=== PATIENT | male | born 1960 | race Caucasian/White ===

== ENCOUNTER → 2019-10-03 07:08 | Outpatient (CLI) | payer OTHER, SELFPAY ==
--- NOTE | 2019-10-03 08:20 | PM.TREADMILL ---
Cardiac Stress Test Report Referral & Results Date Patient Seen: 10/03/19 Time Patient Seen: 08:00 Requesting provider: Lowell Martinez Indication: Dyspnea Rest ECG: NSR Procedure Note: Today following both written and verbal informed consent, the patient was exercised according to a standard [facility] protocol. The patient exercised for a total of 10 minutes 51 seconds achieving a maximum heart rate of 155. Patient's maximum systolic blood pressure was 220. This was an estimated 12.8 METs. No signs or symptoms of angina. No unexpected dyspnea. No change in rhythm. Diffuse ST deviations in multiple leads that resolved slowly with rest. Normal hemodynamic response to exercise. ASIA-25% on active scale. Impression: Low probability for ischemia. Bearden treadmill score of 6 predicts 97% 5 year survival rate from cardiovascular causes. Please note: Actual ECG tracings can be found in the PACS system.
== END ==
PROVIDERS: PCP Internal Medicine; Visit Provider Internal Medicine
DX: R06.09 Other forms of dyspnea (principal)
CPT/HCPCS: 93016; 93017; 93018

== ENCOUNTER 2020-09-10 13:32 | Inpatient (IN) | payer OTHER, SELFPAY ==
[2020-09-10] VITALS (20 sets, daily range): BP systolic 110–161; BP diastolic 69–89; PULSE 62–87; RESP 12–24; TEMP 36.2–38.6; O2SAT 91–99; BMI 30.9
--- NOTE | 2020-09-10 | DI.RAD.S_ITS ---
PROCEDURE: XR ABDOMEN 1V INDICATIONS: BILATERAL STENT PLACEMENT TECHNIQUE: One view of the abdomen acquired. COMPARISON: [facility], CT, CT ABDOMEN PELVIS W CON, 09/10/2020, 15:18. FINDINGS: 2 intraoperative fluoroscopy images were obtained centered to kidneys, demonstrating placement of bilateral ureteral stents. IMPRESSION: Bilateral ureteral stent placement. Dictated by: David Rivera M.D. on 09/10/2020 at 19:23 Approved by: David Rivera M.D. on 09/10/2020 at 19:24
--- NOTE | 2020-09-10 14:02 | DI.RAD.S_ITS ---
PROCEDURE: XR CHEST 1V INDICATIONS: flu-like symptoms TECHNIQUE: One view of the chest was acquired. COMPARISON: None. FINDINGS: Surgical changes and devices: None. Lungs and pleura: Lungs appear clear. No pleural effusions or pneumothorax. Mediastinum: Mediastinal contours appear normal. Heart size is normal. Bones and chest wall: No suspicious bony lesions. Overlying soft tissues appear unremarkable. IMPRESSION: No definite airspace opacity identified. Dictated by: Dewayne Lopez M.D. on 09/10/2020 at 14:56 Approved by: Dewayne Lopez M.D. on 09/10/2020 at 14:59
[2020-09-10 14:16] LABS: Add Manual Diff / Slide Review NO; Basophils Absolute Auto 0 /uL (0-100); Basophils Percent Auto 0.3 % (0-2); Eosinophils Absolute Auto 0 /uL (0-450); Eosinophils Percent Auto 0.4 % (2-4); Hematocrit 45.9 % (41-53); Hemoglobin 15.9 g/dL (13.5-17.5); Lymphocytes Absolute Auto 1500 /uL (1100-4500); Lymphocytes Percent Auto 13.3 % (25-40); Mean Corpuscular HGB Conc 34.6 % (30-36); Mean Corpuscular Hemoglobin 31.7 PG (26-34); Mean Corpuscular Volume 91.7 fL (80-100); Monocytes Absolute Auto 1400 /uL (0-900); Monocytes Percent Auto 12.2 % (3-14); Neutrophils Absolute Auto 8400 /uL (1500-7000); Neutrophils Percent Auto 73.8 % (50-75); Platelet Count 154 X10^3/uL (150-400); Red Cell Distribution Width 13.1 % (11.6-14.8); White Blood Cell Count 11.4 X10^3/uL (4.5-11.0)
[2020-09-10 14:23] LABS: RBC Urine None Seen (0-5/HPF)
[2020-09-10 14:28] LABS: COVID19 -Nasal RAPID Negative (Negative)
[2020-09-10 14:29] LABS: D Dimer 814 ng/mL (<230)
[2020-09-10 14:30] LABS: Lactate (Lactic Acid) 1.6 mmol/L (0.7-2.1)
[2020-09-10 14:30] LABS: Bacteria Urine Many (>30); Culture Indicated Urine Specimen Cultured; WBC Urine 30-100/HPF (0-5/HPF)
[2020-09-10] MEDS: SODIUM CHLORIDE 0.9% 1,000 ML 125 ML IV (14:30)
[2020-09-10 14:32] LABS: Alanine Aminotransferase 62 IU/L (<50); Albumin 4.2 g/dL (3.5-5.0); Albumin Globulin Ratio 1.1 (1.0-2.8); Alkaline Phosphatase 100 U/L (38-126); Aspartate Aminotransferase 59 IU/L (17-59); Bilirubin Total 0.9 mg/dL (0.2-1.3); Blood Urea Nitrogen 28 mg/dL (9-20); Calcium 9.3 mg/dL (8.4-10.2); Carbon Dioxide 29 mmol/L (22-32); Chloride 105 mmol/L (98-107); Estimated Glomerular Filt Rate > 60.0 mL/min (>60); Globulin 3.8 g/dL (1.7-4.1); Glucose 124 mg/dL (80-110); HEMOLYSIS < 15 (0-50); Potassium 3.5 mmol/L (3.4-5.1); Sodium 140 mmol/L (137-145)
[2020-09-10 14:34] LABS: Lactate Dehydrogenase 601 U/L (313-618)
--- NOTE | 2020-09-10 14:36 | ED_ITS ---
HPI - Abdominal Pain <[facility] - Last Filed: 09/10/20 23:26> General Chief Complaint: Upper Respiratory Symptoms Stated Complaint: Sick as a dog, temp since Sun(102), chills Time Seen by Provider: 09/10/20 13:57 Source: patient and family Mode of arrival: Ambulatory Limitations: no limitations History of Present Illness HPI narrative: This is a 60-year-old male, former smoker, who has past medical history significant for cholecystectomy, nasal reconstruction, hepatitis-C with treatment with interferon in 2004 with full recovery presents to ED with significant other with multiple chief complaints. According to spouse, she had all the Covid symptoms 2 weeks ago with fever, headache, URI symptoms, GI symptoms with loss of taste, short of breath but received negative Covid testing results about 10 day into the illness. 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 Last night patient developed severe left quadrant abdominal pain which resolved at this time. Patient reports his urine has been very concentrated with dysuria and inter mittent low back pain. Patient denies history of diverticulitis or infections. Patient reports decreased p.o. intake and had probably 2 meals during last 2-3 days. He reports feeling dehydrated with dry mouth. Also, patient had 1 episode of diarrhea. Patient denies chest pain, dyspnea, dizziness or cough. Spouse noticed patient was very weak this morning and almost loss balance and stumbled on the ground. He denies patient had facial droops, speech difficulty, weakness to 1 side of his body. Patient has been taking Naprosyn 2 tabs about 3 times a day for fever control, NyQuil, and vitamin D. PCP was Dr. Martinez but currently does not have the clinic closure. Related Data Home Medications Medication Instructions Recorded Confirmed naproxen sodium [Aleve] 220 mg PO BID PRN 09/10/20 09/10/20 Allergies Allergy/AdvReac Type Severity Reaction Status Date / Time No Known Drug Allergies Allergy Verified 09/10/20 17:35 Review of Systems <MARION Wang - Last Filed: 09/10/20 23:26> Review of Systems Narrative: General: See HPI HEENT: Denies sinus pain, ear pain, sore throat, difficulty swallowing, dizziness. Respiratory: Denies dyspnea, cough, wheezing, hemoptysis, sputum. Cardiovascular: Denies chest pain, palpitations, orthopnea, edema. Gastrointestinal: See HPI : See HPI Musculoskeletal: See HPI. Skin: Denies rash, skin lesions, or other. Neurologic: Denies weakness, (+) headache, numbness, change in speech, confusion, seizures, incoordination. Psychiatric: No concerning psychosocial issues. 12-point review of systems is negative except for those stated above. Patient History <MARION Wang - Last Filed: 09/10/20 23:26> Medical History Hepatitis C virus infection resolved after antiviral drug therapy Surgical History History of cholecystectomy History of exploratory laparotomy History of nasal surgery Family History (Updated 09/10/20 @ 23:53 by MARION Childress) Father No significant medical problems Mother Brain tumor Son No significant medical problems Daughter No significant medical problems Social History household members: spouse Smoking Status: Former smoker alcohol intake: current Smoking Status: Former smoker alcohol intake frequency: 3 or more drinks per day Substance Use Type: does not use Exam <MARION Wang - Last Filed: 09/10/20 23:26> Narrative Exam Narrative: GEN: Alert, oriented x 3, well nourished, and in no acute distress. Head: Normal cephalic, atraumatic. No scalp or temporal tenderness, palpable mass or rash. EYES: Pupils are equal, round, and reactive to light and accommodation. Extraocular muscles are intact bilaterally. There is no subconjunctival hemorrhage, exudate and sclera non-icteric. ENT: Bilateral auditory canals and tympanic membranes clear. Hearing grossly intact. Nose without bleeding, purulent discharge or deviation. Facial sinuses nontender to palpate. Mucous membrane dry, no mucosal lesion. Throat without erythema, tonsillar hypertrophy or exudate. Uvula in midline, airway patent. Neck: Trachea in midline. No JVD, non-tender without lymphadenopathy. No masses or thyroid megaly. Supple, non-tender and no meningeal signs. CARDIAC: Normal regular rate and rhythm without murmurs, gallops, or rubs. No chest wall tenderness. No peripheral edema, cyanosis or pallor. Capillary refill is less than 2 seconds. RESPIRATORY: Lungs are clear to auscultate bilaterally. No cough, wheezes, rales, or rhonchi. No stridor, respiratory distress, increase work of breathing, or accessary muscle used. ABD: Abdomen soft and non-distended. Tender to palpate in left mid and lower quadrant to mid abdomen. No tenderness to palpate in right lower quadrant. No guarding or rebound tenderness to palpate. Bowel sounds are normal in all 4 quadrants. There is no palpable masses or organomegaly. EXT: Full painless ROM of all extremities with no loss of sensation, strength, effusion or edema. SKIN: Hot, dry, normal color for patient. No erythema, lesions or rash over visible areas. BACK: Nontender without deformity or crepitance. No flank tenderness. NEUROLOGICAL: Alert and oriented to place, time and person. Sensation and motor function intact bilaterally. No facial droops, dysphasia. PSYCHIATRIC: Good judgement and reason, without hallucinations, abnormal affect or abnormal behaviors during the examination. Patient is not suicidal. Initial Vital Signs Initial Vital Signs: Vital Signs Temperature 99.8 F H 09/10/20 13:47 Pulse Rate 72 09/10/20 13:47 Respiratory Rate 16 09/10/20 13:47 Blood Pressure 161/89 H 09/10/20 13:47 Pulse Oximetry 99 09/10/20 13:47 <Jacque Sanders MD - Last Filed: 09/11/20 07:15> Initial Vital Signs Initial Vital Signs: Vital Signs Temperature 99.8 F H 09/10/20 13:47 Pulse Rate 72 09/10/20 13:47 Respiratory Rate 16 09/10/20 13:47 Blood Pressure 161/89 H 09/10/20 13:47 Pulse Oximetry 99 09/10/20 13:47 Scores <MARION Wang - Last Filed: 09/10/20 23:26> GCS Tiffany coma scale eye opening: Spontaneous [place] coma scale verbal response: Orientated Tiffany coma scale motor response: Obey commands [place] coma scale total score: 15 PERC Score Age greater than or equal to 50 years: Yes Heart rate greater than or equal to 100 bpm: No Room Air O2 Sat less than 95%: No Unilateral leg swelling: No Recent trauma or surgery: No Hemoptysis: No Prior PE or DVT: No Hormone Use: No Total PERC Score: 1 qSOFA Altered Mental Status (GCS <15): No Respiratory rate greater than/equal to 22: No Systolic blood pressure less than or equal to 100: No qSOFA Total: 0 0-1 Not High Risk 1-3 High risk Wells' Criteria for PE Clinical signs and symptoms of DVT: No PE is #1 Dx or equally likely: No Heart rate > 100: No Immobilization at least 3 days or surg in previous 4 weeks: No History of PE or DVT: No Hemoptysis: No Malignancy w/Treatment within 6 months or palliative: No Wells' PE Score total: 0 Course <Mark MARION Jeter - Last Filed: 09/10/20 23:26> Orders Ordered: Acetaminophen (Acetaminophen 325 Mg Tablet) 650 mg PO Q4H PRN PRN Reason: Pain, Mild (1-3) Enoxaparin Sodium (Enoxaparin 40 Mg/0.4 Ml Syringe) 40 mg SUBCUT DAILY [facility] Hydromorphone HCl (Hydromorphone 0.5 Mg Inj) 0.5 mg IV Q2H PRN PRN Reason: Pain, Severe (7-10) Lactated Ringer's (Lactated Ringers) 1,000 mls @ 125 mls/hr IV CONT [facility] Last Infusion: 09/11/20 04:11 Dose: 125 mls/hr Documented by: Admin: 09/11/20 04:11 Dose: 125 mls/hr Documented by: Infusion: 09/11/20 04:11 Dose: 125 mls/hr Documented by: Admin: 09/10/20 20:11 Dose: 125 mls/hr Documented by: NAVEEN Ceftriaxone Sodium/Dextrose (Rocephin) 2 gm in 50 mls @ 100 mls/hr IV Q24H [facility] Naloxone HCl (Naloxone 0.4 Mg/Ml Vial) 0.2 mg IV Q2MIN PRN PRN Reason: Opiate Reversal Ondansetron HCl (Ondansetron 4 Mg/2 Ml Inj) 4 mg IV Q6H PRN PRN Reason: Nausea And Vomiting Oxycodone HCl (Oxycodone Ir 5 Mg Tablet) 5 mg PO Q4H PRN PRN Reason: Pain, Moderate (4-6) Discontinued Medications Acetaminophen (Acetaminophen 325 Mg Tablet) 650 mg PO NOW ONE Stop: 09/10/20 14:52 Last Admin: 09/10/20 14:58 Dose: 650 mg Documented by: TEODORO Fentanyl (Fentanyl 100 Mcg/2 Ml Inj) 0 mcg IV Q5M PRN PRN Reason: Pain, Moderate (4-6) Hydromorphone HCl (Hydromorphone 2 Mg Inj) 0 mg IV Q5M PRN PRN Reason: Pain, Moderate (4-6) Sodium Chloride (Normal Saline 0.9%) 1,000 mls @ 125 mls/hr IV CONT [facility] Last Infusion: 09/10/20 17:17 Dose: 0 mls/hr Documented by: Admin: 09/10/20 14:30 Dose: 125 mls/hr Documented by: TEODORO Ceftriaxone Sodium/Dextrose (Rocephin) 2 gm in 50 mls @ 100 mls/hr IV NOW ONE Stop: 09/10/20 15:29 Last Infusion: 09/10/20 15:59 Dose: 0 mls/hr Documented by: Admin: 09/10/20 15:08 Dose: 100 mls/hr Documented by: TEODORO Lactated Ringer's (Lactated Ringers) 1,000 mls @ 42 mls/hr IV CONT [facility] Last Infusion: 09/10/20 19:34 Dose: 42 mls/hr Documented by: Admin: 09/10/20 18:56 Dose: 42 mls/hr Documented by: Infusion: 09/10/20 18:55 Dose: 0 mls/hr Documented by: Admin: 09/10/20 17:37 Dose: 42 mls/hr Documented by: MARCE Cefazolin Sodium/Dextrose (Ancef) 2 gm in 100 mls @ 200 mls/hr IV NOW ONE Stop: 09/10/20 18:23 Last Infusion: 09/10/20 18:06 Dose: 0 mls/hr Documented by: Admin: 09/10/20 17:58 Dose: 200 mls/hr Documented by: Ketorolac Tromethamine (Ketorolac 60 Mg/2 Ml Vial) 15 mg IV NOW ONE Stop: 09/10/20 14:52 Last Admin: 09/10/20 14:57 Dose: 15 mg Documented by: RMARTIN Naloxone HCl (Naloxone 0.4 Mg/Ml Vial) 0.2 mg IV Q2MIN PRN PRN Reason: Opiate Reversal Ondansetron HCl (Ondansetron 4 Mg/2 Ml Inj) 4 mg IV NOW PRN PRN Reason: Nausea And Vomiting Reevaluation(s) Reevaluation #1: The patient reports feeling mildly improved. Informed the patient and spouse on urine test result, elevated early infection indicators, signs of dehydration and elevated d dimer and following tests with CT of chest, abdomen and pelvis. Patient started on an IV antibiotic medication for UTI/bladder/kidney infections. Time: 15:19 Reevaluation #2: Consulted Dr. Harrington for obstructive uropathy and plan for stent inplacement. Dr. Harrington requested patient to be admitted under medical service with consultation to Urology. Time: 16:10 Reevaluation #3: Spoke with Dr. Lisa and she kindly accepted the patient's care for admission for obstructive uropathy. Time: 16:22 Vital Signs Vital signs: Vital Signs - 8 hr 09/10/20 14:39 09/10/20 15:00 09/10/20 15:01 Pulse Rate 78 79 79 Respiratory Rate 23 24 22 Blood Pressure 141/74 H Pulse Oximetry 96 97 98 09/10/20 15:33 09/10/20 15:34 09/10/20 16:00 Pulse Rate 80 80 77 Respiratory Rate 22 20 Blood Pressure 146/70 H 132/69 Pulse Oximetry 96 96 95 09/10/20 16:30 09/10/20 17:00 Pulse Rate 78 80 Respiratory Rate 20 Blood Pressure 138/71 Pulse Oximetry 96 94 <Jacque Sanders MD - Last Filed: 09/11/20 07:15> Orders Ordered: Acetaminophen (Acetaminophen 325 Mg Tablet) 650 mg PO Q4H PRN PRN Reason: Pain, Mild (1-3) Enoxaparin Sodium (Enoxaparin 40 Mg/0.4 Ml Syringe) 40 mg SUBCUT DAILY [facility] Hydromorphone HCl (Hydromorphone 0.5 Mg Inj) 0.5 mg IV Q2H PRN PRN Reason: Pain, Severe (7-10) Lactated Ringer's (Lactated Ringers) 1,000 mls @ 125 mls/hr IV CONT [facility] Last Infusion: 09/11/20 04:11 Dose: 125 mls/hr Documented by: Admin: 09/11/20 04:11 Dose: 125 mls/hr Documented by: Infusion: 09/11/20 04:11 Dose: 125 mls/hr Documented by: Admin: 09/10/20 20:11 Dose: 125 mls/hr Documented by: NAVEEN Ceftriaxone Sodium/Dextrose (Rocephin) 2 gm in 50 mls @ 100 mls/hr IV Q24H [facility] Naloxone HCl (Naloxone 0.4 Mg/Ml Vial) 0.2 mg IV Q2MIN PRN PRN Reason: Opiate Reversal Ondansetron HCl (Ondansetron 4 Mg/2 Ml Inj) 4 mg IV Q6H PRN PRN Reason: Nausea And Vomiting Oxycodone HCl (Oxycodone Ir 5 Mg Tablet) 5 mg PO Q4H PRN PRN Reason: Pain, Moderate (4-6) Discontinued Medications Acetaminophen (Acetaminophen 325 Mg Tablet) 650 mg PO NOW ONE Stop: 09/10/20 14:52 Last Admin: 09/10/20 14:58 Dose: 650 mg Documented by: TEODORO Fentanyl (Fentanyl 100 Mcg/2 Ml Inj) 0 mcg IV Q5M PRN PRN Reason: Pain, Moderate (4-6) Hydromorphone HCl (Hydromorphone 2 Mg Inj) 0 mg IV Q5M PRN PRN Reason: Pain, Moderate (4-6) Sodium Chloride (Normal Saline 0.9%) 1,000 mls @ 125 mls/hr IV CONT [facility] Last Infusion: 09/10/20 17:17 Dose: 0 mls/hr Documented by: Admin: 09/10/20 14:30 Dose: 125 mls/hr Documented by: TEODORO Ceftriaxone Sodium/Dextrose (Rocephin) 2 gm in 50 mls @ 100 mls/hr IV NOW ONE Stop: 09/10/20 15:29 Last Infusion: 09/10/20 15:59 Dose: 0 mls/hr Documented by: Admin: 09/10/20 15:08 Dose: 100 mls/hr Documented by: TEODORO Lactated Ringer's (Lactated Ringers) 1,000 mls @ 42 mls/hr IV CONT [facility] Last Infusion: 09/10/20 19:34 Dose: 42 mls/hr Documented by: Admin: 09/10/20 18:56 Dose: 42 mls/hr Documented by: Infusion: 09/10/20 18:55 Dose: 0 mls/hr Documented by: Admin: 09/10/20 17:37 Dose: 42 mls/hr Documented by: MARCE Cefazolin Sodium/Dextrose (Ancef) 2 gm in 100 mls @ 200 mls/hr IV NOW ONE Stop: 09/10/20 18:23 Last Infusion: 09/10/20 18:06 Dose: 0 mls/hr Documented by: Admin: 09/10/20 17:58 Dose: 200 mls/hr Documented by: MITCH Ketorolac Tromethamine (Ketorolac 60 Mg/2 Ml Vial) 15 mg IV NOW ONE Stop: 09/10/20 14:52 Last Admin: 09/10/20 14:57 Dose: 15 mg Documented by: TEODORO Naloxone HCl (Naloxone 0.4 Mg/Ml Vial) 0.2 mg IV Q2MIN PRN PRN Reason: Opiate Reversal Ondansetron HCl (Ondansetron 4 Mg/2 Ml Inj) 4 mg IV NOW PRN PRN Reason: Nausea And Vomiting Vital Signs Vital signs: Vital Signs - 8 hr 09/10/20 14:39 09/10/20 15:00 09/10/20 15:01 Pulse Rate 78 79 79 Respiratory Rate 23 24 22 Blood Pressure 141/74 H Pulse Oximetry 96 97 98 09/10/20 15:33 09/10/20 15:34 09/10/20 16:00 Pulse Rate 80 80 77 Respiratory Rate 22 20 Blood Pressure 146/70 H 132/69 Pulse Oximetry 96 96 95 09/10/20 16:30 09/10/20 17:00 Pulse Rate 78 80 Respiratory Rate 20 Blood Pressure 138/71 Pulse Oximetry 96 94 MDM - Abdominal Pain <Mark MARION Jeter - Last Filed: 09/10/20 23:26> Differential Diagnosis Differential diagnosis: Likely calculus of kidney, diverticulitis and other (Pyelonephritis, pneumonia, Covid, UTI) Medical Records Attestation: I reviewed the patient's medical records. Lab Data Attestation: I reviewed the patient's lab results. Result diagrams: 09/11/20 05:40 09/11/20 05:40 Labs: Lab Results 09/10/20 09/10/20 09/10/20 Range/Units 14:04 14:04 14:04 WBC 11.4 H (4.5-11.0) X10^3/uL RBC 5.00 (4.5-5.9) X10^6/uL Hgb 15.9 (13.5-17.5) g/dL Hct 45.9 (41-53) % MCV 91.7 (80-100) fL MCH 31.7 (26-34) PG MCHC 34.6 (30-36) % RDW 13.1 (11.6-14.8) % Plt Count 154 (150-400) X10^3/uL Neut % (Auto) 73.8 (50-75) % Lymph % (Auto) 13.3 L (25-40) % Maury % (Auto) 12.2 (3-14) % Eos % (Auto) 0.4 L (2-4) % Baso % (Auto) 0.3 (0-2) % Neut # (Auto) 8400 H (0089-4743) /uL Lymph # (Auto) 1500 (8241-7832) /uL Maury # (Auto) 1400 H (0-900) /uL Eos # (Auto) 0 (0-450) /uL Baso # (Auto) 0 (0-100) /uL D-Dimer 814 H (<230) ng/mL Sodium (137-145) mmol/L Potassium (3.4-5.1) mmol/L Chloride (98-107) mmol/L Carbon Dioxide (22-32) mmol/L BUN (9-20) mg/dL Creatinine (0.66-1.25) mg/dL Estimated GFR (>60) mL/min BUN/Creatinine Ratio (6-22) Glucose (80-110) mg/dL Lactate (0.7-2.1) mmol/L Calcium (8.4-10.2) mg/dL Magnesium (1.6-2.3) mg/dL Ferritin (18-464) ng/mL Total Bilirubin (0.2-1.3) mg/dL AST (17-59) IU/L ALT (<50) IU/L Alkaline Phosphatase (38-126) U/L Lactate Dehydrogenase (313-618) U/L C-Reactive Protein (<1.0) mg/dL NT-Pro-B Natriuret Pep (<125) pg/mL Total Protein (6.3-8.2) g/dL Albumin (3.5-5.0) g/dL Globulin (1.7-4.1) g/dL Albumin/Globulin Ratio (1.0-2.8) Procalcitonin (<0.5) ng/mL Urine RBC (0-5/HPF) Urine WBC (0-5/HPF) Urine Bacteria (None) Ur Culture Indicated? A. baumannii (PCR) (Not Detect) Shanique albicans (PCR) (Not Detect) C. glabrata (PCR) (Not Detect) C. krusei (PCR) (Not Detect) C. parapsilosis (PCR) (Not Detect) C. tropicalis (PCR) (Not Detect) COVID-19 PCR Negative (Negative) Enterobacteriac sp PCR (Not Detect) E. cloacae complex PCR (Not Detect) Enterococcus sp PCR (Not Detect) E. coli (PCR) (Not Detect) H. influenzae (PCR) (Not Detect) Influenza A (RT-PCR) (NEGATIVE) Influenza B (RT-PCR) (NEGATIVE) Klebsiella oxytoca PCR (Not Detect) Klebsiella pneumoniae (Not Detect) List. monocytogenes PCR (Not Detect) N. meningitidis (PCR) (Not Detect) Proteus species (PCR) (Not Detect) Serratia marcescens PCR (Not Detect) Staphylococcus sp PCR (Not Detect) Staph aureus (PCR) (Not Detect) mecA-Methicil Res Gene Streptococcus sp PCR (Not Detect) Group A Strep (PCR) (Not Detect) Strep agalactiae (PCR) (Not Detect) Strep pneumoniae (PCR) (Not Detect) P. aeruginosa (PCR) (Not Detect) Joon/B-Vanco Res Genes KPC-Carbap Res Gene PCR (Not Detect) 09/10/20 09/10/20 09/10/20 Range/Units 14:04 14:04 14:04 WBC (4.5-11.0) X10^3/uL RBC (4.5-5.9) X10^6/uL Hgb (13.5-17.5) g/dL Hct (41-53) % MCV (80-100) fL MCH (26-34) PG MCHC (30-36) % RDW (11.6-14.8) % Plt Count (150-400) X10^3/uL Neut % (Auto) (50-75) % Lymph % (Auto) (25-40) % Maury % (Auto) (3-14) % Eos % (Auto) (2-4) % Baso % (Auto) (0-2) % Neut # (Auto) (0621-8735) /uL Lymph # (Auto) (2484-1037) /uL Maury # (Auto) (0-900) /uL Eos # (Auto) (0-450) /uL Baso # (Auto) (0-100) /uL D-Dimer (<230) ng/mL Sodium 140 (137-145) mmol/L Potassium 3.5 (3.4-5.1) mmol/L Chloride 105 (98-107) mmol/L Carbon Dioxide 29 (22-32) mmol/L BUN 28 H (9-20) mg/dL Creatinine 1.22 (0.66-1.25) mg/dL Estimated GFR > 60.0 (>60) mL/min BUN/Creatinine Ratio 23.0 H (6-22) Glucose 124 H (80-110) mg/dL Lactate (0.7-2.1) mmol/L Calcium 9.3 (8.4-10.2) mg/dL Magnesium (1.6-2.3) mg/dL Ferritin 1170 H (18-464) ng/mL Total Bilirubin 0.9 (0.2-1.3) mg/dL AST 59 (17-59) IU/L ALT 62 H (<50) IU/L Alkaline Phosphatase 100 (38-126) U/L Lactate Dehydrogenase 601 (313-618) U/L C-Reactive Protein 14.2 H (<1.0) mg/dL NT-Pro-B Natriuret Pep 318 H (<125) pg/mL Total Protein 8.0 (6.3-8.2) g/dL Albumin 4.2 (3.5-5.0) g/dL Globulin 3.8 (1.7-4.1) g/dL Albumin/Globulin Ratio 1.1 (1.0-2.8) Procalcitonin 2.51 H (<0.5) ng/mL Urine RBC (0-5/HPF) Urine WBC (0-5/HPF) Urine Bacteria (None) Ur Culture Indicated? A. baumannii (PCR) (Not Detect) Shanique albicans (PCR) (Not Detect) C. glabrata (PCR) (Not Detect) C. krusei (PCR) (Not Detect) C. parapsilosis (PCR) (Not Detect) C. tropicalis (PCR) (Not Detect) COVID-19 PCR (Negative) Enterobacteriac sp PCR (Not Detect) E. cloacae complex PCR (Not Detect) Enterococcus sp PCR (Not Detect) E. coli (PCR) (Not Detect) H. influenzae (PCR) (Not Detect) Influenza A (RT-PCR) (NEGATIVE) Influenza B (RT-PCR) (NEGATIVE) Klebsiella oxytoca PCR (Not Detect) Klebsiella pneumoniae (Not Detect) List. monocytogenes PCR (Not Detect) N. meningitidis (PCR) (Not Detect) Proteus species (PCR) (Not Detect) Serratia marcescens PCR (Not Detect) Staphylococcus sp PCR (Not Detect) Staph aureus (PCR) (Not Detect) mecA-Methicil Res Gene Streptococcus sp PCR (Not Detect) Group A Strep (PCR) (Not Detect) Strep agalactiae (PCR) (Not Detect) Strep pneumoniae (PCR) (Not Detect) P. aeruginosa (PCR) (Not Detect) Joon/B-Vanco Res Genes KPC-Carbap Res Gene PCR (Not Detect) 09/10/20 09/10/20 09/10/20 Range/Units 14:04 14:04 14:04 WBC (4.5-11.0) X10^3/uL RBC (4.5-5.9) X10^6/uL Hgb (13.5-17.5) g/dL Hct (41-53) % MCV (80-100) fL MCH (26-34) PG MCHC (30-36) % RDW (11.6-14.8) % Plt Count (150-400) X10^3/uL Neut % (Auto) (50-75) % Lymph % (Auto) (25-40) % Maury % (Auto) (3-14) % Eos % (Auto) (2-4) % Baso % (Auto) (0-2) % Neut # (Auto) (7702-1368) /uL Lymph # (Auto) (5701-7399) /uL Maury # (Auto) (0-900) /uL Eos # (Auto) (0-450) /uL Baso # (Auto) (0-100) /uL D-Dimer (<230) ng/mL Sodium (137-145) mmol/L Potassium (3.4-5.1) mmol/L Chloride (98-107) mmol/L Carbon Dioxide (22-32) mmol/L BUN (9-20) mg/dL Creatinine (0.66-1.25) mg/dL Estimated GFR (>60) mL/min BUN/Creatinine Ratio (6-22) Glucose (80-110) mg/dL Lactate 1.6 (0.7-2.1) mmol/L Calcium (8.4-10.2) mg/dL Magnesium 2.1 (1.6-2.3) mg/dL Ferritin (18-464) ng/mL Total Bilirubin (0.2-1.3) mg/dL AST (17-59) IU/L ALT (<50) IU/L Alkaline Phosphatase (38-126) U/L Lactate Dehydrogenase (313-618) U/L C-Reactive Protein (<1.0) mg/dL NT-Pro-B Natriuret Pep (<125) pg/mL Total Protein (6.3-8.2) g/dL Albumin (3.5-5.0) g/dL Globulin (1.7-4.1) g/dL Albumin/Globulin Ratio (1.0-2.8) Procalcitonin (<0.5) ng/mL Urine RBC (0-5/HPF) Urine WBC (0-5/HPF) Urine Bacteria (None) Ur Culture Indicated? A. baumannii (PCR) Not detected (Not Detect) Shanique albicans (PCR) Not detected (Not Detect) C. glabrata (PCR) Not detected (Not Detect) C. krusei (PCR) Not detected (Not Detect) C. parapsilosis (PCR) Not detected (Not Detect) C. tropicalis (PCR) Not detected (Not Detect) COVID-19 PCR (Negative) Enterobacteriac sp PCR Detected H (Not Detect) E. cloacae complex PCR Not detected (Not Detect) Enterococcus sp PCR Not detected (Not Detect) E. coli (PCR) Detected H (Not Detect) H. influenzae (PCR) Not detected (Not Detect) Influenza A (RT-PCR) (NEGATIVE) Influenza B (RT-PCR) (NEGATIVE) Klebsiella oxytoca PCR Not detected (Not Detect) Klebsiella pneumoniae Not detected (Not Detect) List. monocytogenes PCR Not detected (Not Detect) N. meningitidis (PCR) Not detected (Not Detect) Proteus species (PCR) Not detected (Not Detect) Serratia marcescens PCR Not detected (Not Detect) Staphylococcus sp PCR Not detected (Not Detect) Staph aureus (PCR) Not detected (Not Detect) mecA-Methicil Res Gene Not Reportable Streptococcus sp PCR Not detected (Not Detect) Group A Strep (PCR) Not detected (Not Detect) Strep agalactiae (PCR) Not detected (Not Detect) Strep pneumoniae (PCR) Not detected (Not Detect) P. aeruginosa (PCR) Not detected (Not Detect) Joon/B-Vanco Res Genes Not Reportable KPC-Carbap Res Gene PCR Not detected (Not Detect) 09/10/20 09/10/20 Range/Units 14:17 14:22 WBC (4.5-11.0) X10^3/uL RBC (4.5-5.9) X10^6/uL Hgb (13.5-17.5) g/dL Hct (41-53) % MCV (80-100) fL MCH (26-34) PG MCHC (30-36) % RDW (11.6-14.8) % Plt Count (150-400) X10^3/uL Neut % (Auto) (50-75) % Lymph % (Auto) (25-40) % Maury % (Auto) (3-14) % Eos % (Auto) (2-4) % Baso % (Auto) (0-2) % Neut # (Auto) (4518-7567) /uL Lymph # (Auto) (8945-4764) /uL Maury # (Auto) (0-900) /uL Eos # (Auto) (0-450) /uL Baso # (Auto) (0-100) /uL D-Dimer (<230) ng/mL Sodium (137-145) mmol/L Potassium (3.4-5.1) mmol/L Chloride (98-107) mmol/L Carbon Dioxide (22-32) mmol/L BUN (9-20) mg/dL Creatinine (0.66-1.25) mg/dL Estimated GFR (>60) mL/min BUN/Creatinine Ratio (6-22) Glucose (80-110) mg/dL Lactate (0.7-2.1) mmol/L Calcium (8.4-10.2) mg/dL Magnesium (1.6-2.3) mg/dL Ferritin (18-464) ng/mL Total Bilirubin (0.2-1.3) mg/dL AST (17-59) IU/L ALT (<50) IU/L Alkaline Phosphatase (38-126) U/L Lactate Dehydrogenase (313-618) U/L C-Reactive Protein (<1.0) mg/dL NT-Pro-B Natriuret Pep (<125) pg/mL Total Protein (6.3-8.2) g/dL Albumin (3.5-5.0) g/dL Globulin (1.7-4.1) g/dL Albumin/Globulin Ratio (1.0-2.8) Procalcitonin (<0.5) ng/mL Urine RBC None seen (0-5/HPF) Urine WBC 30-100/hpf H (0-5/HPF) Urine Bacteria Many (>30) H (None) Ur Culture Indicated? Specimen cultured A. baumannii (PCR) (Not Detect) [place] albicans (PCR) (Not Detect) C. glabrata (PCR) (Not Detect) C. krusei (PCR) (Not Detect) C. parapsilosis (PCR) (Not Detect) C. tropicalis (PCR) (Not Detect) COVID-19 PCR (Negative) Enterobacteriac sp PCR (Not Detect) E. cloacae complex PCR (Not Detect) Enterococcus sp PCR (Not Detect) E. coli (PCR) (Not Detect) H. influenzae (PCR) (Not Detect) Influenza A (RT-PCR) Flu a negative (NEGATIVE) Influenza B (RT-PCR) Flu b negative (NEGATIVE) Klebsiella oxytoca PCR (Not Detect) Klebsiella pneumoniae (Not Detect) List. monocytogenes PCR (Not Detect) N. meningitidis (PCR) (Not Detect) Proteus species (PCR) (Not Detect) Serratia marcescens PCR (Not Detect) Staphylococcus sp PCR (Not Detect) Staph aureus (PCR) (Not Detect) mecA-Methicil Res Gene Streptococcus sp PCR (Not Detect) Group A Strep (PCR) (Not Detect) Strep agalactiae (PCR) (Not Detect) Strep pneumoniae (PCR) (Not Detect) P. aeruginosa (PCR) (Not Detect) Joon/B-Vanco Res Genes KPC-Carbap Res Gene PCR (Not Detect) Point of care testing: Urine Dip Bedside Urine Glucose Negative Bedside Urine Bilirubin - Negative Bedside Urine Ketone - Negative Urine Specific Midway 1.015 Bedside Urine Occult Blood +++ Bedside Urine pH 6.0 Bedside Urine Protein +/- 15 Bedside Urine Urobilinogen +/- 1mg Bedside Urine Nitrite + Positive Bedside Urine Leukocytes +++ [address] scan - chest: Radiologist's Impression: [address] [id number] Scan ReportSigned Patient: Fly Trevino#: [id number]: 9Acct:[id number]/Sex: 60 / MDate of Service: 09/10/20Loc: EDAccession Number: [id number] Procedure: CT angio chest PE protocol Ordering Provider: Mark Jeter PROCEDURE: CT ANGIO CHEST PE PROTOCOL INDICATIONS: elevated d dimer TECHNIQUE: After the administration of intravenous contrast, 2 mm thick sections acquired from the pulmonary apices to the posterior costophrenic angles. 3-dimensional maximum intensity projection (MIP) coronal and sagittal reformats were then acquired through the thorax. For radiation dose reduction, the following was used: automated exposure control, adjustment of mA and/or kV according to patient size. COMPARISON: None. FINDINGS: Image quality: Excellent. Pulmonary arteries: Pulmonary arteries are normal in size, and demonstrate no intraluminal filling defects to suggest central pulmonary embolism. Lungs and pleura: Lungs are clear. No pleural effusions or pneumothorax. Central and peripheral airways are patent. Mediastinum: Heart size is normal, without pericardial effusion. No mediastinal or hilar adenopathy. Thoracic aorta is normal in caliber and enhancement. Esophagus is normal in caliber, without hiatal hernia. Bones and chest wall: No suspicious bony lesions. Ribs and thoracic spine appear intact throughout. Thyroid gland appears moderately enlarged, best seen at the inferior left thyroid lobe . No axillary or supraclavicular adenopathy. Abdomen: Visualized upper abdominal solid organs appear normal in the early arterial phase of enhancement. IMPRESSION: A pulmonary embolus is not found. Pneumonia is not seen. Note is made of asymmetric enlargement of the thyroid gland, left greater than right and best seen at the inferior aspect of the left thyroid lobe. Thyroid nodules could explain this appearance. Depending on the clinical status follow-up by thyroid ultrasound as an elective study may be warranted for more accurate characterization. Dictated by: Aristides Johnston M.D. on 09/10/2020 at 15:39 Approved by: Aristides Johnston M.D. on 09/10/2020 at 15:43 CT scan - abdomen/pelvis: Radiologist's Impression: Junior Trevino 60 M [address] [id number] Scan ReportSigned Patient: Fly Trevino#: [id number]: 9Acct:[id number]/Sex: 60 / MDate of Service: 09/10/20Loc: EDAccession Number: [id number] Procedure: CT abdomen pelvis w con Ordering Provider: Mark Jeter PROCEDURE: CT ABDOMEN PELVIS W CON INDICATIONS: left quad pain, elevated infection marker TECHNIQUE: After the administration of intravenous contrast, 5 mm thick sections acquired from the diaphragm to the symphysis. 5 mm coronal and sagittal reformats were acquired. For radiation dose reduction, the following was used: automated exposure control, adjustment of mA and/or kV according to patient size. COMPARISON: None. FINDINGS: Image quality: Excellent. ABDOMEN: Lung bases: Lung bases are clear. Heart size is normal. Solid organs: Liver is normal in size and enhancement. Gallbladder is surgically absent. Biliary system is non dilated. Pancreas enhances normally. Spleen is normal in size and enhancement. No adrenal nodules. Large right obstructing ureteral stone at the level of L4-L5 measuring 1.2 by 0.8 x 1.0 cm with resulting moderate hydronephrosis and hydroureter. 4 mm obstructing left ureteropelvic junction stone resulting in mild left hydronephrosis.2 Peritoneum and bowel: Bowel loops demonstrate normal wall thickness and caliber. No free fluid or air. Extensive diverticulosis without evidence of diverticulitis. Nodes and vessels: No retroperitoneal or mesenteric adenopathy by size criteria. Aorta and inferior vena cava are normal in size. Miscellaneous: No ventral hernias. PELVIS: Genitourinary: Mild diffuse bladder wall thickening. Miscellaneous: No inguinal hernias or adenopathy. Bones: No suspicious bony lesions. No vertebral body compression fractures. IMPRESSION: 1. Large right ureteral stone obstructing the right ureter at L4-L5 resulting in moderate right hydronephrosis. 2. 4 mm left UPJ stone resulting in mild left hydronephrosis. 3. Extensive diverticulosis without evidence of diverticulitis. Dictated by: Antoni Crowe M.D. on 09/10/2020 at 15:40 Approved by: Antoni Crowe M.D. on 09/10/2020 at 15:43 Chest x-ray: Radiologist's Impression: [address] [id number] ReportSigned Patient: Fly Trevino#: [id number]: 9Acct:[id number]/Sex: 60 / MDate of Service: 09/10/20Loc: EDAccession Number: [id number] Procedure: XR chest 1V Ordering Provider: Mark Jeter PROCEDURE: XR CHEST 1V INDICATIONS: flu-like symptoms TECHNIQUE: One view of the chest was acquired. COMPARISON: None. FINDINGS: Surgical changes and devices: None. Lungs and pleura: Lungs appear clear. No pleural effusions or pneumothorax. Mediastinum: Mediastinal contours appear normal. Heart size is normal. Bones and chest wall: No suspicious bony lesions. Overlying soft tissues appear unremarkable. IMPRESSION: No definite airspace opacity identified. Dictated by: Dewayne Lopez M.D. on 09/10/2020 at 14:56 Approved by: Dewayne Lopez M.D. on 09/10/2020 at 14:59 MDM Narrative Medical decision making narrative: This is a 60-year-old male who presents to ED with fever for 5 days, severe abdominal pain during last night but resolved at this time, nausea and vomiting 3 days ago with decreased appetite and po intake including liquids. Patient's was sick with COVID symptoms 2 weeks ago had negative testing. Patient reports concentrated urine and dysuria which started onset of his symptoms. Physical exam appreciated tender to palpate in left quadrant. Mild tenderness to percuss skin bilateral low back. Oral mucous membrane was slightly dry. Vital signs at triage with temperature of 99.8? with slight tension with within normal limits of heart rate. Concerns for possible exposure to Covid, initiated Covid testing set. However, patient did not have cough, short of breath, and had good o2 saturation in room air. Patient was able to provide urine sample upon arrival and it shows +++ blood, postive urine nitrite and +++500 of urine leukocyte esterase. Micro urine test results shows many urine bacteria and 30-100 /hpf of urine WBC. Urine culture is pending. Lab tests shows mild leukocytosis of 11.4 with slight lymphocytopenia. Normal lactate of 1.6 but elevated procalcitonin of 2.51 with CRP of 14.2 with concerns for bacterial infection. Signs of dehydration with elevated of BUN of 28 and BUN/creatinine ratio of 23. Mild elevation in serum glucose of 124. Ferritin level was elevated as well up to 11 70. Mildly elevated ALT of 62 with normal Tb, AST and Alk phos. Normal Total protein. D dimer test result was elevated to 814. Although low risk for PE per well's criteria and PERC score, given positive D dimer for his age, CT chest angio for pulmonary embolism and abdomen pelvis CT were ordered. CT results with No indications for pulmonary embolism or pneumonia. Abdomen/pelvis CT test shows large right ureter stone measuring 1.2 x 0.8 x 1.0 cm in size obstructing at L4- 5 level resulting moderate right hydronephrosis with 4mm left UPJ stone resulting in mild left hydronephrosis. Also appreciated extensive diverticulosis without diverticulitis. Incidental finding of asymmetric enlargement of the thyroid gland greater in left side and advised patient and spouse to follow-up with primary care physician. Covid test was negative. Post void residual measured and <10 ml. The patient was medicated with IVF of NS 1 liter, IV toradol 15 mg, Tylenol, Rocephin [address] Harrington consulted with concerns for obstructive uropathy, UTI/urosepsis and surgical intervention for stent to remove the ureteral stones. Dr. Lisa consulted for admission under medical service and she kindly accepted the patient's care. <Jacque Sanders MD - Last Filed: 09/11/20 07:15> Lab Data Labs: Lab Results 09/10/20 09/10/20 09/10/20 Range/Units 14:04 14:04 14:04 WBC 11.4 H (4.5-11.0) X10^3/uL RBC 5.00 (4.5-5.9) X10^6/uL Hgb 15.9 (13.5-17.5) g/dL Hct 45.9 (41-53) % MCV 91.7 (80-100) fL MCH 31.7 (26-34) PG MCHC 34.6 (30-36) % RDW 13.1 (11.6-14.8) % Plt Count 154 (150-400) X10^3/uL Neut % (Auto) 73.8 (50-75) % Lymph % (Auto) 13.3 L (25-40) % Maury % (Auto) 12.2 (3-14) % Eos % (Auto) 0.4 L (2-4) % Baso % (Auto) 0.3 (0-2) % Neut # (Auto) 8400 H (6948-2676) /uL Lymph # (Auto) 1500 (9344-7675) /uL Maury # (Auto) 1400 H (0-900) /uL Eos # (Auto) 0 (0-450) /uL Baso # (Auto) 0 (0-100) /uL D-Dimer 814 H (<230) ng/mL Sodium (137-145) mmol/L Potassium (3.4-5.1) mmol/L Chloride (98-107) mmol/L Carbon Dioxide (22-32) mmol/L BUN (9-20) mg/dL Creatinine (0.66-1.25) mg/dL Estimated GFR (>60) mL/min BUN/Creatinine Ratio (6-22) Glucose (80-110) mg/dL Lactate (0.7-2.1) mmol/L Calcium (8.4-10.2) mg/dL Magnesium (1.6-2.3) mg/dL Ferritin (18-464) ng/mL Total Bilirubin (0.2-1.3) mg/dL AST (17-59) IU/L ALT (<50) IU/L Alkaline Phosphatase (38-126) U/L Lactate Dehydrogenase (313-618) U/L C-Reactive Protein (<1.0) mg/dL NT-Pro-B Natriuret Pep (<125) pg/mL Total Protein (6.3-8.2) g/dL Albumin (3.5-5.0) g/dL Globulin (1.7-4.1) g/dL Albumin/Globulin Ratio (1.0-2.8) Procalcitonin (<0.5) ng/mL Urine RBC (0-5/HPF) Urine WBC (0-5/HPF) Urine Bacteria (None) Ur Culture Indicated? A. baumannii (PCR) (Not Detect) Shanique albicans (PCR) (Not Detect) C. glabrata (PCR) (Not Detect) C. krusei (PCR) (Not Detect) C. parapsilosis (PCR) (Not Detect) C. tropicalis (PCR) (Not Detect) COVID-19 PCR Negative (Negative) Enterobacteriac sp PCR (Not Detect) E. cloacae complex PCR (Not Detect) Enterococcus sp PCR (Not Detect) E. coli (PCR) (Not Detect) H. influenzae (PCR) (Not Detect) Influenza A (RT-PCR) (NEGATIVE) Influenza B (RT-PCR) (NEGATIVE) Klebsiella oxytoca PCR (Not Detect) Klebsiella pneumoniae (Not Detect) List. monocytogenes PCR (Not Detect) N. meningitidis (PCR) (Not Detect) Proteus species (PCR) (Not Detect) Serratia marcescens PCR (Not Detect) Staphylococcus sp PCR (Not Detect) Staph aureus (PCR) (Not Detect) mecA-Methicil Res Gene Streptococcus sp PCR (Not Detect) Group A Strep (PCR) (Not Detect) Strep agalactiae (PCR) (Not Detect) Strep pneumoniae (PCR) (Not Detect) P. aeruginosa (PCR) (Not Detect) Joon/B-Vanco Res Genes KPC-Carbap Res Gene PCR (Not Detect) 09/10/20 09/10/20 09/10/20 Range/Units 14:04 14:04 14:04 WBC (4.5-11.0) X10^3/uL RBC (4.5-5.9) X10^6/uL Hgb (13.5-17.5) g/dL Hct (41-53) % MCV (80-100) fL MCH (26-34) PG MCHC (30-36) % RDW (11.6-14.8) % Plt Count (150-400) X10^3/uL Neut % (Auto) (50-75) % Lymph % (Auto) (25-40) % Maury % (Auto) (3-14) % Eos % (Auto) (2-4) % Baso % (Auto) (0-2) % Neut # (Auto) (4567-8489) /uL Lymph # (Auto) (9961-6098) /uL Maury # (Auto) (0-900) /uL Eos # (Auto) (0-450) /uL Baso # (Auto) (0-100) /uL D-Dimer (<230) ng/mL Sodium 140 (137-145) mmol/L Potassium 3.5 (3.4-5.1) mmol/L Chloride 105 (98-107) mmol/L Carbon Dioxide 29 (22-32) mmol/L BUN 28 H (9-20) mg/dL Creatinine 1.22 (0.66-1.25) mg/dL Estimated GFR > 60.0 (>60) mL/min BUN/Creatinine Ratio 23.0 H (6-22) Glucose 124 H (80-110) mg/dL Lactate (0.7-2.1) mmol/L Calcium 9.3 (8.4-10.2) mg/dL Magnesium (1.6-2.3) mg/dL Ferritin 1170 H (18-464) ng/mL Total Bilirubin 0.9 (0.2-1.3) mg/dL AST 59 (17-59) IU/L ALT 62 H (<50) IU/L Alkaline Phosphatase 100 (38-126) U/L Lactate Dehydrogenase 601 (313-618) U/L C-Reactive Protein 14.2 H (<1.0) mg/dL NT-Pro-B Natriuret Pep 318 H (<125) pg/mL Total Protein 8.0 (6.3-8.2) g/dL Albumin 4.2 (3.5-5.0) g/dL Globulin 3.8 (1.7-4.1) g/dL Albumin/Globulin Ratio 1.1 (1.0-2.8) Procalcitonin 2.51 H (<0.5) ng/mL Urine RBC (0-5/HPF) Urine WBC (0-5/HPF) Urine Bacteria (None) Ur Culture Indicated? A. baumannii (PCR) (Not Detect) Shanique albicans (PCR) (Not Detect) C. glabrata (PCR) (Not Detect) C. krusei (PCR) (Not Detect) C. parapsilosis (PCR) (Not Detect) C. tropicalis (PCR) (Not Detect) COVID-19 PCR (Negative) Enterobacteriac sp PCR (Not Detect) E. cloacae complex PCR (Not Detect) Enterococcus sp PCR (Not Detect) E. coli (PCR) (Not Detect) H. influenzae (PCR) (Not Detect) Influenza A (RT-PCR) (NEGATIVE) Influenza B (RT-PCR) (NEGATIVE) Klebsiella oxytoca PCR (Not Detect) Klebsiella pneumoniae (Not Detect) List. monocytogenes PCR (Not Detect) N. meningitidis (PCR) (Not Detect) Proteus species (PCR) (Not Detect) Serratia marcescens PCR (Not Detect) Staphylococcus sp PCR (Not Detect) Staph aureus (PCR) (Not Detect) mecA-Methicil Res Gene Streptococcus sp PCR (Not Detect) Group A Strep (PCR) (Not Detect) Strep agalactiae (PCR) (Not Detect) Strep pneumoniae (PCR) (Not Detect) P. aeruginosa (PCR) (Not Detect) Joon/B-Vanco Res Genes KPC-Carbap Res Gene PCR (Not Detect) 09/10/20 09/10/20 09/10/20 Range/Units 14:04 14:04 14:04 WBC (4.5-11.0) X10^3/uL RBC (4.5-5.9) X10^6/uL Hgb (13.5-17.5) g/dL Hct (41-53) % MCV (80-100) fL MCH (26-34) PG MCHC (30-36) % RDW (11.6-14.8) % Plt Count (150-400) X10^3/uL Neut % (Auto) (50-75) % Lymph % (Auto) (25-40) % Maury % (Auto) (3-14) % Eos % (Auto) (2-4) % Baso % (Auto) (0-2) % Neut # (Auto) (8202-0245) /uL Lymph # (Auto) (1035-6441) /uL Maury # (Auto) (0-900) /uL Eos # (Auto) (0-450) /uL Baso # (Auto) (0-100) /uL D-Dimer (<230) ng/mL Sodium (137-145) mmol/L Potassium (3.4-5.1) mmol/L Chloride (98-107) mmol/L Carbon Dioxide (22-32) mmol/L BUN (9-20) mg/dL Creatinine (0.66-1.25) mg/dL Estimated GFR (>60) mL/min BUN/Creatinine Ratio (6-22) Glucose (80-110) mg/dL Lactate 1.6 (0.7-2.1) mmol/L Calcium (8.4-10.2) mg/dL Magnesium 2.1 (1.6-2.3) mg/dL Ferritin (18-464) ng/mL Total Bilirubin (0.2-1.3) mg/dL AST (17-59) IU/L ALT (<50) IU/L Alkaline Phosphatase (38-126) U/L Lactate Dehydrogenase (313-618) U/L C-Reactive Protein (<1.0) mg/dL NT-Pro-B Natriuret Pep (<125) pg/mL Total Protein (6.3-8.2) g/dL Albumin (3.5-5.0) g/dL Globulin (1.7-4.1) g/dL Albumin/Globulin Ratio (1.0-2.8) Procalcitonin (<0.5) ng/mL Urine RBC (0-5/HPF) Urine WBC (0-5/HPF) Urine Bacteria (None) Ur Culture Indicated? A. baumannii (PCR) Not detected (Not Detect) Shanique albicans (PCR) Not detected (Not Detect) C. glabrata (PCR) Not detected (Not Detect) C. krusei (PCR) Not detected (Not Detect) C. parapsilosis (PCR) Not detected (Not Detect) C. tropicalis (PCR) Not detected (Not Detect) COVID-19 PCR (Negative) Enterobacteriac sp PCR Detected H (Not Detect) E. cloacae complex PCR Not detected (Not Detect) Enterococcus sp PCR Not detected (Not Detect) E. coli (PCR) Detected H (Not Detect) H. influenzae (PCR) Not detected (Not Detect) Influenza A (RT-PCR) (NEGATIVE) Influenza B (RT-PCR) (NEGATIVE) Klebsiella oxytoca PCR Not detected (Not Detect) Klebsiella pneumoniae Not detected (Not Detect) List. monocytogenes PCR Not detected (Not Detect) N. meningitidis (PCR) Not detected (Not Detect) Proteus species (PCR) Not detected (Not Detect) Serratia marcescens PCR Not detected (Not Detect) Staphylococcus sp PCR Not detected (Not Detect) Staph aureus (PCR) Not detected (Not Detect) mecA-Methicil Res Gene Not Reportable Streptococcus sp PCR Not detected (Not Detect) Group A Strep (PCR) Not detected (Not Detect) Strep agalactiae (PCR) Not detected (Not Detect) Strep pneumoniae (PCR) Not detected (Not Detect) P. aeruginosa (PCR) Not detected (Not Detect) Joon/B-Vanco Res Genes Not Reportable KPC-Carbap Res Gene PCR Not detected (Not Detect) 09/10/20 09/10/20 Range/Units 14:17 14:22 WBC (4.5-11.0) X10^3/uL RBC (4.5-5.9) X10^6/uL Hgb (13.5-17.5) g/dL Hct (41-53) % MCV (80-100) fL MCH (26-34) PG MCHC (30-36) % RDW (11.6-14.8) % Plt Count (150-400) X10^3/uL Neut % (Auto) (50-75) % Lymph % (Auto) (25-40) % Maury % (Auto) (3-14) % Eos % (Auto) (2-4) % Baso % (Auto) (0-2) % Neut # (Auto) (8376-5342) /uL Lymph # (Auto) (3386-7007) /uL Maury # (Auto) (0-900) /uL Eos # (Auto) (0-450) /uL Baso # (Auto) (0-100) /uL D-Dimer (<230) ng/mL Sodium (137-145) mmol/L Potassium (3.4-5.1) mmol/L Chloride (98-107) mmol/L Carbon Dioxide (22-32) mmol/L BUN (9-20) mg/dL Creatinine (0.66-1.25) mg/dL Estimated GFR (>60) mL/min BUN/Creatinine Ratio (6-22) Glucose (80-110) mg/dL Lactate (0.7-2.1) mmol/L Calcium (8.4-10.2) mg/dL Magnesium (1.6-2.3) mg/dL Ferritin (18-464) ng/mL Total Bilirubin (0.2-1.3) mg/dL AST (17-59) IU/L ALT (<50) IU/L Alkaline Phosphatase (38-126) U/L Lactate Dehydrogenase (313-618) U/L C-Reactive Protein (<1.0) mg/dL NT-Pro-B Natriuret Pep (<125) pg/mL Total Protein (6.3-8.2) g/dL Albumin (3.5-5.0) g/dL Globulin (1.7-4.1) g/dL Albumin/Globulin Ratio (1.0-2.8) Procalcitonin (<0.5) ng/mL Urine RBC None seen (0-5/HPF) Urine WBC 30-100/hpf H (0-5/HPF) Urine Bacteria Many (>30) H (None) Ur Culture Indicated? Specimen cultured A. baumannii (PCR) (Not Detect) Shanique albicans (PCR) (Not Detect) C. glabrata (PCR) (Not Detect) C. krusei (PCR) (Not Detect) C. parapsilosis (PCR) (Not Detect) C. tropicalis (PCR) (Not Detect) COVID-19 PCR (Negative) Enterobacteriac sp PCR (Not Detect) E. cloacae complex PCR (Not Detect) Enterococcus sp PCR (Not Detect) E. coli (PCR) (Not Detect) H. influenzae (PCR) (Not Detect) Influenza A (RT-PCR) Flu a negative (NEGATIVE) Influenza B (RT-PCR) Flu b negative (NEGATIVE) Klebsiella oxytoca PCR (Not Detect) Klebsiella pneumoniae (Not Detect) List. monocytogenes PCR (Not Detect) N. meningitidis (PCR) (Not Detect) Proteus species (PCR) (Not Detect) Serratia marcescens PCR (Not Detect) Staphylococcus sp PCR (Not Detect) Staph aureus (PCR) (Not Detect) mecA-Methicil Res Gene Streptococcus sp PCR (Not Detect) Group A Strep (PCR) (Not Detect) Strep agalactiae (PCR) (Not Detect) Strep pneumoniae (PCR) (Not Detect) P. aeruginosa (PCR) (Not Detect) Joon/B-Vanco Res Genes KPC-Carbap Res Gene PCR (Not Detect) Point of care testing: Urine Dip Bedside Urine Glucose Negative Bedside Urine Bilirubin - Negative Bedside Urine Ketone - Negative Urine Specific Midway 1.015 Bedside Urine Occult Blood +++ Bedside Urine pH 6.0 Bedside Urine Protein +/- 15 Bedside Urine Urobilinogen +/- 1mg Bedside Urine Nitrite + Positive Bedside Urine Leukocytes +++ 500 Esterase Discharge Plan Departure Patient Disposition: Admitted As Inpatient Clinical Impression: Acute bilateral obstructive uropathy Admit Date/Time: 09/10/20 17:09 Admit Provider: Louise Harrington <Jacque Sanders MD - Last Filed: 09/11/20 07:15> Cosign ED Attending Cosignature Attestation: I was immediately available in the department for consultation throughout this patient's visit. I agree with documentation as above. Jacque Sanders MD
[2020-09-10 14:45] LABS: C-Reactive Protein Quant 14.2 mg/dL (<1.0)
[2020-09-10 14:54] LABS: Magnesium 2.1 mg/dL (1.6-2.3); Procalcitonin 2.51 ng/mL (<0.5)
[2020-09-10] MEDS: KETOROLAC 60 MG/2 ML VIAL 15 MG IV (14:57)
[2020-09-10] MEDS: ACETAMINOPHEN 325 MG TABLET 650 MG PO (14:58)
--- NOTE | 2020-09-10 15:01 | DI.CT.S_ITS ---
PROCEDURE: CT ANGIO CHEST PE PROTOCOL INDICATIONS: elevated d dimer TECHNIQUE: After the administration of intravenous contrast, 2 mm thick sections acquired from the pulmonary apices to the posterior costophrenic angles. 3-dimensional maximum intensity projection (MIP) coronal and sagittal reformats were then acquired through the thorax. For radiation dose reduction, the following was used: automated exposure control, adjustment of mA and/or kV according to patient size. COMPARISON: None. FINDINGS: Image quality: Excellent. Pulmonary arteries: Pulmonary arteries are normal in size, and demonstrate no intraluminal filling defects to suggest central pulmonary embolism. Lungs and pleura: Lungs are clear. No pleural effusions or pneumothorax. Central and peripheral airways are patent. Mediastinum: Heart size is normal, without pericardial effusion. No mediastinal or hilar adenopathy. Thoracic aorta is normal in caliber and enhancement. Esophagus is normal in caliber, without hiatal hernia. Bones and chest wall: No suspicious bony lesions. Ribs and thoracic spine appear intact throughout. Thyroid gland appears moderately enlarged, best seen at the inferior left thyroid lobe . No axillary or supraclavicular adenopathy. Abdomen: Visualized upper abdominal solid organs appear normal in the early arterial phase of enhancement. IMPRESSION: A pulmonary embolus is not found. Pneumonia is not seen. Note is made of asymmetric enlargement of the thyroid gland, left greater than right and best seen at the inferior aspect of the left thyroid lobe. Thyroid nodules could explain this appearance. Depending on the clinical status follow-up by thyroid ultrasound as an elective study may be warranted for more accurate characterization. Dictated by: Aristides Johnston M.D. on 09/10/2020 at 15:39 Approved by: Aristides Johnston M.D. on 09/10/2020 at 15:43
--- NOTE | 2020-09-10 15:01 | DI.CT.S_ITS ---
PROCEDURE: CT ABDOMEN PELVIS W CON INDICATIONS: left quad pain, elevated infection marker TECHNIQUE: After the administration of intravenous contrast, 5 mm thick sections acquired from the diaphragm to the symphysis. 5 mm coronal and sagittal reformats were acquired. For radiation dose reduction, the following was used: automated exposure control, adjustment of mA and/or kV according to patient size. COMPARISON: None. FINDINGS: Image quality: Excellent. ABDOMEN: Lung bases: Lung bases are clear. Heart size is normal. Solid organs: Liver is normal in size and enhancement. Gallbladder is surgically absent. Biliary system is non dilated. Pancreas enhances normally. Spleen is normal in size and enhancement. No adrenal nodules. Large right obstructing ureteral stone at the level of L4-L5 measuring 1.2 by 0.8 x 1.0 cm with resulting moderate hydronephrosis and hydroureter. 4 mm obstructing left ureteropelvic junction stone resulting in mild left hydronephrosis.2 Peritoneum and bowel: Bowel loops demonstrate normal wall thickness and caliber. No free fluid or air. Extensive diverticulosis without evidence of diverticulitis. Nodes and vessels: No retroperitoneal or mesenteric adenopathy by size criteria. Aorta and inferior vena cava are normal in size. Miscellaneous: No ventral hernias. PELVIS: Genitourinary: Mild diffuse bladder wall thickening. Miscellaneous: No inguinal hernias or adenopathy. Bones: No suspicious bony lesions. No vertebral body compression fractures. IMPRESSION: 1. Large right ureteral stone obstructing the right ureter at L4-L5 resulting in moderate right hydronephrosis. 2. 4 mm left UPJ stone resulting in mild left hydronephrosis. 3. Extensive diverticulosis without evidence of diverticulitis. Dictated by: Antoni Crowe M.D. on 09/10/2020 at 15:40 Approved by: Antoni Crowe M.D. on 09/10/2020 at 15:43
[2020-09-10] MEDS: CEFTRIAXONE 2 GM/50 ML FROZ.PIGGY IV (15:08)
[2020-09-10 15:10] LABS: Influenza A - CEPHEID Flu A NEGATIVE (NEGATIVE); Influenza B - CEPHEID Flu B NEGATIVE (NEGATIVE)
[2020-09-10 15:22] LABS: NT-proBNP (BNP-Adult 18+) 318 pg/mL (<125)
[2020-09-10 15:48] LABS: Ferritin 1170 ng/mL (18-464)
[2020-09-10] MEDS: LACTATED RINGERS 1,000 ML 42 ML IV ×2 (17:37→18:56)
[2020-09-10] MEDS: CEFAZOLIN 2 GM/100 ML FROZ.PIGGY IV (17:58)
--- NOTE | 2020-09-10 17:58 | PM.CN ---
History of Present Illness Consult details Date Patient Seen: 09/10/20 Time Patient Seen: 17:59 Chief complaint: Sick as a dog, temp since Sun(102), chills Reason for consult: Bilateral obstructing ureteral calculi Requesting provider: Mark Jeter Narrative: The patient is a 60-year-old white male previously healthy until about 6 or 7 days ago a began noting increased lower urinary tract symptoms, malaise, weakness, anorexia and fever greater than 101. He has no previous history of UTI or urinary tract stones. His took him to the walk-in clinic earlier today and he was directed from there to the [facility] ED. extensive evaluation was conducted with finding of a presumptive diagnosis of UTI/urosepsis and bilateral obstructing ureteral calculi per CT KUB. The VV see 11.4 with left shift. D-dimer is elevated 814 C reactive protein is elevated 14 point-retic peptide is elevated 318 prolactin is elevated 2.51. Urinalysis demonstrates elevated leukocytes and many bacteria. Meds Home Medications and Allergies Home Medications Medication Instructions Recorded Confirmed Type naproxen sodium [Aleve] 220 mg PO BID PRN 09/10/20 09/10/20 History Allergies Allergy/AdvReac Type Severity Reaction Status Date / Time No Known Drug Allergies Allergy Verified 09/10/20 17:35 Review of Systems Review of Systems ROS: Yes All systems reviewed with the patient and are negative except as otherwise documented Exam Vital Signs (past 8 hours): - 09/10/20 13:47 09/10/20 14:39 09/10/20 15:00 Temperature 99.8 F H Pulse Rate 72 78 79 Respiratory Rate 16 23 24 Blood Pressure 161/89 H Pulse Oximetry 99 96 97 09/10/20 15:01 09/10/20 15:33 09/10/20 15:34 Temperature Pulse Rate 79 80 80 Respiratory Rate 22 22 Blood Pressure 141/74 H 146/70 H Pulse Oximetry 98 96 96 09/10/20 16:00 09/10/20 16:30 09/10/20 17:00 Temperature Pulse Rate 77 78 80 Respiratory Rate 20 20 Blood Pressure 132/69 138/71 Pulse Oximetry 95 96 94 09/10/20 17:26 Temperature 101.4 F H Pulse Rate 78 Respiratory Rate 16 Blood Pressure 122/77 Pulse Oximetry 95 Oxygen Delivery Method Room Air Narrative Exam Narrative: He is a well-developed well-nourished adult male in no current distress. Chest-equal, clear, and unlabored expansion bilaterally. Abdomen-protuberant and soft. Bowel sounds are active. Moderate tenderness on palpation left lower quadrant without rebound a localizing signs. Heart-regular rhythm in regular rate. No extra sounds appreciated. Objective Labs Result Diagrams: 09/10/20 14:04 09/10/20 14:04 Labs: Laboratory Results - last 24 hr 09/10/20 09/10/20 09/10/20 14:04 14:04 14:04 WBC 11.4 H RBC 5.00 Hgb 15.9 Hct 45.9 MCV 91.7 MCH 31.7 MCHC 34.6 RDW 13.1 Plt Count 154 Neut % (Auto) 73.8 Lymph % (Auto) 13.3 L [place] % (Auto) 12.2 Eos % (Auto) 0.4 L Baso % (Auto) 0.3 Neut # (Auto) 8400 H Lymph # (Auto) 1500 [place] # (Auto) 1400 H Eos # (Auto) 0 Baso # (Auto) 0 D-Dimer 814 H Sodium Potassium Chloride Carbon Dioxide BUN Creatinine Estimated GFR BUN/Creatinine Ratio Glucose Lactate Calcium Magnesium Ferritin Total Bilirubin AST ALT Alkaline Phosphatase Lactate Dehydrogenase C-Reactive Protein NT-Pro-B Natriuret Pep Total Protein Albumin Globulin Albumin/Globulin Ratio Procalcitonin Urine RBC Urine WBC Urine Bacteria Ur Culture Indicated? COVID-19 PCR Negative Influenza A (RT-PCR) Influenza B (RT-PCR) 09/10/20 09/10/20 09/10/20 14:04 14:04 14:04 WBC RBC Hgb Hct MCV MCH MCHC RDW Plt Count Neut % (Auto) Lymph % (Auto) [place] % (Auto) Eos % (Auto) Baso % (Auto) Neut # (Auto) Lymph # (Auto) [place] # (Auto) Eos # (Auto) Baso # (Auto) D-Dimer Sodium 140 Potassium 3.5 Chloride 105 Carbon Dioxide 29 BUN 28 H Creatinine 1.22 Estimated GFR > 60.0 BUN/Creatinine Ratio 23.0 H Glucose 124 H Lactate Calcium 9.3 Magnesium Ferritin 1170 H Total Bilirubin 0.9 AST 59 ALT 62 H Alkaline Phosphatase 100 Lactate Dehydrogenase 601 C-Reactive Protein 14.2 H NT-Pro-B Natriuret Pep 318 H Total Protein 8.0 Albumin 4.2 Globulin 3.8 Albumin/Globulin Ratio 1.1 Procalcitonin 2.51 H Urine RBC Urine WBC Urine Bacteria Ur Culture Indicated? COVID-19 PCR Influenza A (RT-PCR) Influenza B (RT-PCR) 09/10/20 09/10/20 09/10/20 14:04 14:04 14:17 WBC RBC Hgb Hct MCV MCH MCHC RDW Plt Count Neut % (Auto) Lymph % (Auto) [place] % (Auto) Eos % (Auto) Baso % (Auto) Neut # (Auto) Lymph # (Auto) [place] # (Auto) Eos # (Auto) Baso # (Auto) D-Dimer Sodium Potassium Chloride Carbon Dioxide BUN Creatinine Estimated GFR BUN/Creatinine Ratio Glucose Lactate 1.6 Calcium Magnesium 2.1 Ferritin Total Bilirubin AST ALT Alkaline Phosphatase Lactate Dehydrogenase C-Reactive Protein NT-Pro-B Natriuret Pep Total Protein Albumin Globulin Albumin/Globulin Ratio Procalcitonin Urine RBC Urine WBC Urine Bacteria Ur Culture Indicated? COVID-19 PCR Influenza A (RT-PCR) Flu a negative Influenza B (RT-PCR) Flu b negative 09/10/20 14:22 WBC RBC Hgb Hct MCV MCH MCHC RDW Plt Count Neut % (Auto) Lymph % (Auto) [place] % (Auto) Eos % (Auto) Baso % (Auto) Neut # (Auto) Lymph # (Auto) [place] # (Auto) Eos # (Auto) Baso # (Auto) D-Dimer Sodium Potassium Chloride Carbon Dioxide BUN Creatinine Estimated GFR BUN/Creatinine Ratio Glucose Lactate Calcium Magnesium Ferritin Total Bilirubin AST ALT Alkaline Phosphatase Lactate Dehydrogenase C-Reactive Protein NT-Pro-B Natriuret Pep Total Protein Albumin Globulin Albumin/Globulin Ratio Procalcitonin Urine RBC None seen Urine WBC 30-100/hpf H Urine Bacteria Many (>30) H Ur Culture Indicated? Specimen cultured COVID-19 PCR Influenza A (RT-PCR) Influenza B (RT-PCR) Assessment & Plan Assessment & Plan narrative: Assessment: 1. Obstructing bilateral ureteral calculi. 2. UTI/urosepsis. Plan: 1. Discussion and informed consent for urgent cystoscopy and bilateral ureteral stent placement. 2. Agree with plan for broad-spectrum antibiotics pending final urine culture.
--- NOTE | 2020-09-10 18:15 | SUR.OPER ---
Lithotomy on padded OR bed, head on pillow, arms secured on padded arm boards at <90 degrees abduction. Legs secured in padded yellow fins stirrups.
--- NOTE | 2020-09-10 18:35 | P.OP_ITS ---
Operative Date/Time/Diagnoses Date of procedure: 09/10/20 Time of procedure: 18:35 Pre-op diagnosis: 1. Bilateral obstructing ureteral calculi 2. UTI/urosepsis Post-op diagnosis: same Procedure & Clinicians Procedure: 1. Cystoscopy/placement bilateral ureteral stents (7 Sammarinese by 22-32 cm). 2. Cystoscopy/bilateral ureteral stone manipulation without removal. Same procedure as scheduled: Yes Indications: 1. Bilateral obstructing ureteral calculi. 2. UTI/urosepsis Surgeon: Louise Harrington Click Yes if Unassisted: Yes Anesthesia Type: General Operative Notes Findings: 1. Urethra-normal caliber without stricture or lesion. 2. External sphincter-coapted. 3. Prostate-4 cm length with moderate lateral lobe hyperplasia. 4. Bladder -1 to 2+ trabeculation. Normal position ureteral orifices b ilaterally. Postobstructive and cloudy efflux was witnessed from both ureteral orifices following position of bilateral ureteral stents. Closure Type: not applicable Specimen(s): none sent Applied: other (Bilateral 7 [place]inese by 22-32 cm multi-length stents.) Estimated Blood Loss (mL): 0 Blood products transfused: none Tourniquet time (min): 0 Procedure in detail: Patient was positioned supine was administered general anesthesia. He was then positioned semi lithotomy and lower abdomen, genitalia, and perineum were prepped and draped in sterile fashion. Next, the 22 [place]ammarinese panendoscope was passed lower urinary tract with findings as described above. A 0.35 hybrid guidewire was selected, was advanced through the scope, and advanced in the left ureteral orifice. He was then advanced proximally under direct and fluoroscopic guidance. A 7 [place] by 22-32 cm multi-length stent was then selected. This was advanced over the guidewire and advanced proximally under direct fluoroscopic guidance. NO RETRIEVAL LINE WAS LEFT ATTACHED. Next, the same steps were undertaken to position the same size stent in the right collecting system. Again, NO RETRIEVAL LINE WAS LEFT ATTACHED. The bladder was then drained completely and all instrumentation was removed. The patient was repositioned supine. The patient was then awakened, transferred to [facility], and transferred to recovery room. Complications: none Post-operative Condition: stable Disposition: PACU Plan for aftercare: Acute care
--- NOTE | 2020-09-10 19:05 | SUR.PHASEI ---
Patient denies any pain or nausea but feels like he needs to pee. Assisted patient with urinal.
[2020-09-10] MEDS: LACTATED RINGERS 1,000 ML 125 ML IV (20:11)
--- NOTE | 2020-09-10 22:54 | PC.NURSE ---
Pt admitted to ACU from OR, bilateral cystoscopy w/ bilat stents placed. Able to void on own without difficulty. Reports no pain, VSS, afebrile. AOx4.
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
[2020-09-11 00:15] VITALS: BP 125/85; PULSE 60; RESP 16; TEMP 36.1; O2SAT 96
[2020-09-11 03:45] VITALS: BP 117/77; PULSE 57; RESP 14; TEMP 36.4; O2SAT 93
[2020-09-11] MEDS: LACTATED RINGERS 1,000 ML 125 ML IV ×2 (04:11→12:22)
[2020-09-11 04:43] LABS: Enterococcus species Not Detected (Not Detect); Listeria monocytogenes Not Detected (Not Detect); Staphylococcus species Not Detected (Not Detect); Streptococcus agalactiae (Gr B Not Detected (Not Detect); Streptococcus pneumonia Not Detected (Not Detect); Streptococcus pyogenes (Gr A) Not Detected (Not Detect); Streptococcus species Not Detected (Not Detect)
[2020-09-11 04:44] LABS: Acinetobacter baumannii Not Detected (Not Detect); Enterobacteriaceae species Detected (Not Detect); KPC (carbapenem-resist gene) Not Detected (Not Detect)
[2020-09-11 04:45] LABS: Candida albicans Not Detected (Not Detect); Candida glabrata Not Detected (Not Detect); Candida krusei Not Detected (Not Detect); Candida parapsilosis Not Detected (Not Detect); Candida tropicalis Not Detected (Not Detect); E. coli Detected (Not Detect); Enterobacter cloacae complex Not Detected (Not Detect); Haemophilus influenzae Not Detected (Not Detect); Neisseria meningitidis Not Detected (Not Detect); Proteus species Not Detected (Not Detect); Pseudomonas aeruginosa Not Detected (Not Detect); Serratia marcescens Not Detected (Not Detect)
[2020-09-11 06:04] LABS: Add Manual Diff / Slide Review NO; Basophils Absolute Auto 100 /uL (0-100); Basophils Percent Auto 0.8 % (0-2); Eosinophils Absolute Auto 0 /uL (0-450); Hematocrit 42.7 % (41-53); Hemoglobin 14.5 g/dL (13.5-17.5); Lymphocytes Absolute Auto 1400 /uL (1100-4500); Lymphocytes Percent Auto 12.4 % (25-40); Mean Corpuscular Hemoglobin 31.2 PG (26-34); Mean Corpuscular Volume 91.9 fL (80-100); Monocytes Absolute Auto 600 /uL (0-900); Neutrophils Absolute Auto 9100 /uL (1500-7000); Neutrophils Percent Auto 81.8 % (50-75); Platelet Count 147 X10^3/uL (150-400); Red Blood Cell Count 4.65 X10^6/uL (4.5-5.9); Red Cell Distribution Width 13.4 % (11.6-14.8); White Blood Cell Count 11.1 X10^3/uL (4.5-11.0)
[2020-09-11 06:29] LABS: BUN Creatinine Ratio 24.7 (6-22); Blood Urea Nitrogen 24 mg/dL (9-20); Calcium 9.5 mg/dL (8.4-10.2); Carbon Dioxide 27 mmol/L (22-32); Chloride 107 mmol/L (98-107); Estimated Glomerular Filt Rate > 60.0 mL/min (>60); Glucose 196 mg/dL (80-110); HEMOLYSIS < 15 (0-50); Potassium 4.1 mmol/L (3.4-5.1); Sodium 138 mmol/L (137-145)
[2020-09-11 06:38] LABS: Procalcitonin 1.41 ng/mL (<0.5)
[2020-09-11 06:45] LABS: TSH w/ Reflex to FT4 0.58 uIU/mL (0.47-4.68)
[2020-09-11 07:00] VITALS: BP 121/82; PULSE 62; RESP 15; TEMP 36.1; O2SAT 95
[2020-09-11] MEDS: ENOXAPARIN 40 MG/0.4 ML SYRINGE SUBCUT (08:41)
[2020-09-11 08:52] VITALS: PULSE 62; RESP 16; O2SAT 95
--- NOTE | 2020-09-11 09:13 | CM.DANOTE ---
Addendum entered by Jacqueline Hilliard R.N. 09/11/20 10:07: Provided patient phone number for [facility], as well as [facility]. Original Note: DCP: Case received, EMR reviewed and met with patient. Introduced self and role. Was able to obtain information from patient regarding his baseline activity status prior to hospitalization. DCP assessment completed with information currently available. Patient is a 60 year old male who admitted yesterday afternoon to the care of the hospitalist/surgical team. PCP: Used to see Dr. Martinez, has no current PCP. Payer: confirmed: [employer]. Patient came to the hospital via private vehicle secondary to having a fever, some flank back pain. Patient currently diagnosed with ureteral caculi/bilateral obstruction. He had surgery yesterday, and stents were put in. Patient also has history of diverticilitis, as well as Hep. C. Met with patient in his room. He was sitting up in bed, pleasant. He resides in [place] with his spouse, January. he is independent at baseline. He mentioned that he had seen Dr. 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 Let him know that this party planner can provide providers that are currently accepting patients, such as [facility]. Will provide patient a list. P: DCP to continue to follow and will be available for resources, such as primary care providers in the area. Jacqueline Hilliard RN/Beam Machine Operator
--- NOTE | 2020-09-11 10:26 | DI.RAD.S_ITS ---
PROCEDURE: XR KUB INDICATIONS: Bilateral ureteral calculi TECHNIQUE: One view of the abdomen acquired. COMPARISON: [facility], CT, CT ABDOMEN PELVIS W CON, 09/10/2020, 15:18. [facility], CR, XR ABDOMEN 1V, 09/10/2020, 18:18. FINDINGS: Surgical changes and devices: Bilateral ureteral stents have been placed. Cholecystectomy clips are seen. Bowel: Bowel gas pattern is normal. Soft tissues: There is visualization of the right mid ureteral stone seen. A nonobstructing left-sided kidney stone is seen that measures 7 mm, which is likely the previously seen ureteral stone. Visualized solid organ contours appear normal in size. Bones: No suspicious bony lesions. IMPRESSION: Interval placement of bilateral ureteral stents, with the ends seen in the expected locations. The previously seen right mid ureteral stone is again seen. The previously seen left ureteral stone is now seen nonobstructing within the left kidney. Dictated by: Robb Banda M.D. on 09/11/2020 at 9:56 Approved by: Robb Banda M.D. on 09/11/2020 at 10:00
--- NOTE | 2020-09-11 10:28 | P.PN_ITS ---
Subjective Subjective Date Patient Seen: 09/11/20 Time Patient Seen: 10:28 Interval history: Postoperative day 1. Status post cystoscopy and bilateral ureteral stent placements for urosepsis without shock and bilateral obstructing ureteral calculi. Exam Vital Signs (past 8 hours): - 09/11/20 03:45 09/11/20 07:00 09/11/20 08:52 Temperature 97.6 F 96.9 F L Pulse Rate 57 L 62 62 Respiratory Rate 14 15 16 Blood Pressure 117/77 121/82 Pulse Oximetry 93 95 95 Oxygen Delivery Method Room Air Oxygen Flow Rate 0 Narrative Exam Narrative: He is sitting upright in bed and in no acute distress. He reports feeling considerably subjectively better. Appetite has improved but not normal. Abdomen-protuberant and soft. Bowel sounds are active and normal. No tenderness or abdominal distention. Objective Labs Result Diagrams: 09/11/20 05:40 09/11/20 05:40 Labs: Laboratory Results - last 24 hr 09/10/20 09/10/20 09/10/20 14:04 14:04 14:04 WBC 11.4 H RBC 5.00 Hgb 15.9 Hct 45.9 MCV 91.7 MCH 31.7 MCHC 34.6 RDW 13.1 Plt Count 154 Neut % (Auto) 73.8 Lymph % (Auto) 13.3 L [place] % (Auto) 12.2 Eos % (Auto) 0.4 L Baso % (Auto) 0.3 Neut # (Auto) 8400 H Lymph # (Auto) 1500 [place] # (Auto) 1400 H Eos # (Auto) 0 Baso # (Auto) 0 D-Dimer 814 H Sodium Potassium Chloride Carbon Dioxide BUN Creatinine Estimated GFR BUN/Creatinine Ratio Glucose Lactate Calcium Magnesium Ferritin Total Bilirubin AST ALT Alkaline Phosphatase Lactate Dehydrogenase C-Reactive Protein NT-Pro-B Natriuret Pep Total Protein Albumin Globulin Albumin/Globulin Ratio Procalcitonin TSH Urine RBC Urine WBC Urine Bacteria Ur Culture Indicated? A. baumannii (PCR) [place] albicans (PCR) C. glabrata (PCR) C. krusei (PCR) C. parapsilosis (PCR) C. tropicalis (PCR) COVID-19 PCR Negative Enterobacteriac sp PCR E. cloacae complex PCR Enterococcus sp PCR E. coli (PCR) H. influenzae (PCR) Influenza A (RT-PCR) Influenza B (RT-PCR) Klebsiella oxytoca PCR Klebsiella pneumoniae List. monocytogenes PCR N. meningitidis (PCR) Proteus species (PCR) Serratia marcescens PCR Staphylococcus sp PCR Staph aureus (PCR) mecA-Methicil Res Gene Streptococcus sp PCR Group A Strep (PCR) Strep agalactiae (PCR) Strep pneumoniae (PCR) P. aeruginosa (PCR) Joon/B-Vanco Res Genes KPC-Carbap Res Gene PCR 09/10/20 09/10/20 09/10/20 14:04 14:04 14:04 WBC RBC Hgb Hct MCV MCH MCHC RDW Plt Count Neut % (Auto) Lymph % (Auto) [place] % (Auto) Eos % (Auto) Baso % (Auto) Neut # (Auto) Lymph # (Auto) [place] # (Auto) Eos # (Auto) Baso # (Auto) D-Dimer Sodium 140 Potassium 3.5 Chloride 105 Carbon Dioxide 29 BUN 28 H Creatinine 1.22 Estimated GFR > 60.0 BUN/Creatinine Ratio 23.0 H Glucose 124 H Lactate Calcium 9.3 Magnesium Ferritin 1170 H Total Bilirubin 0.9 AST 59 ALT 62 H Alkaline Phosphatase 100 Lactate Dehydrogenase 601 C-Reactive Protein 14.2 H NT-Pro-B Natriuret Pep 318 H Total Protein 8.0 Albumin 4.2 Globulin 3.8 Albumin/Globulin Ratio 1.1 Procalcitonin 2.51 H TSH Urine RBC Urine WBC Urine Bacteria Ur Culture Indicated? A. baumannii (PCR) [place] albicans (PCR) C. glabrata (PCR) C. krusei (PCR) C. parapsilosis (PCR) C. tropicalis (PCR) COVID-19 PCR Enterobacteriac sp PCR E. cloacae complex PCR Enterococcus sp PCR E. coli (PCR) H. influenzae (PCR) Influenza A (RT-PCR) Influenza B (RT-PCR) Klebsiella oxytoca PCR Klebsiella pneumoniae List. monocytogenes PCR N. meningitidis (PCR) Proteus species (PCR) Serratia marcescens PCR Staphylococcus sp PCR Staph aureus (PCR) mecA-Methicil Res Gene Streptococcus sp PCR Group A Strep (PCR) Strep agalactiae (PCR) Strep pneumoniae (PCR) P. aeruginosa (PCR) Joon/B-Vanco Res Genes KPC-Carbap Res Gene PCR 09/10/20 09/10/20 09/10/20 14:04 14:04 14:04 WBC RBC Hgb Hct MCV MCH MCHC RDW Plt Count Neut % (Auto) Lymph % (Auto) [place] % (Auto) Eos % (Auto) Baso % (Auto) Neut # (Auto) Lymph # (Auto) [place] # (Auto) Eos # (Auto) Baso # (Auto) D-Dimer Sodium Potassium Chloride Carbon Dioxide BUN Creatinine Estimated GFR BUN/Creatinine Ratio Glucose Lactate 1.6 Calcium Magnesium 2.1 Ferritin Total Bilirubin AST ALT Alkaline Phosphatase Lactate Dehydrogenase C-Reactive Protein NT-Pro-B Natriuret Pep Total Protein Albumin Globulin Albumin/Globulin Ratio Procalcitonin TSH Urine RBC Urine WBC Urine Bacteria Ur Culture Indicated? A. baumannii (PCR) Not detected [place] albicans (PCR) Not detected C. glabrata (PCR) Not detected C. krusei (PCR) Not detected C. parapsilosis (PCR) Not detected C. tropicalis (PCR) Not detected COVID-19 PCR Enterobacteriac sp PCR Detected H E. cloacae complex PCR Not detected Enterococcus sp PCR Not detected E. coli (PCR) Detected H H. influenzae (PCR) Not detected Influenza A (RT-PCR) Influenza B (RT-PCR) Klebsiella oxytoca PCR Not detected Klebsiella pneumoniae Not detected List. monocytogenes PCR Not detected N. meningitidis (PCR) Not detected Proteus species (PCR) Not detected Serratia marcescens PCR Not detected Staphylococcus sp PCR Not detected Staph aureus (PCR) Not detected mecA-Methicil Res Gene Not Reportable Streptococcus sp PCR Not detected Group A Strep (PCR) Not detected Strep agalactiae (PCR) Not detected Strep pneumoniae (PCR) Not detected P. aeruginosa (PCR) Not detected Joon/B-Vanco Res Genes Not Reportable KPC-Carbap Res Gene PCR Not detected 09/10/20 09/10/20 09/11/20 14:17 14:22 05:40 WBC RBC Hgb Hct MCV MCH MCHC RDW Plt Count Neut % (Auto) Lymph % (Auto) [place] % (Auto) Eos % (Auto) Baso % (Auto) Neut # (Auto) Lymph # (Auto) [place] # (Auto) Eos # (Auto) Baso # (Auto) D-Dimer Sodium Potassium Chloride Carbon Dioxide BUN Creatinine Estimated GFR BUN/Creatinine Ratio Glucose Lactate Calcium Magnesium Ferritin Total Bilirubin AST ALT Alkaline Phosphatase Lactate Dehydrogenase C-Reactive Protein NT-Pro-B Natriuret Pep Total Protein Albumin Globulin Albumin/Globulin Ratio Procalcitonin 1.41 H TSH Urine RBC None seen Urine WBC 30-100/hpf H Urine Bacteria Many (>30) H Ur Culture Indicated? Specimen cultured A. baumannii (PCR) [place] albicans (PCR) C. glabrata (PCR) C. krusei (PCR) C. parapsilosis (PCR) C. tropicalis (PCR) COVID-19 PCR Enterobacteriac sp PCR E. cloacae complex PCR Enterococcus sp PCR E. coli (PCR) H. influenzae (PCR) Influenza A (RT-PCR) Flu a negative Influenza B (RT-PCR) Flu b negative Klebsiella oxytoca PCR Klebsiella pneumoniae List. monocytogenes PCR N. meningitidis (PCR) Proteus species (PCR) Serratia marcescens PCR Staphylococcus sp PCR Staph aureus (PCR) mecA-Methicil Res Gene Streptococcus sp PCR Group A Strep (PCR) Strep agalactiae (PCR) Strep pneumoniae (PCR) P. aeruginosa (PCR) Joon/B-Vanco Res Genes KPC-Carbap Res Gene PCR 09/11/20 09/11/20 09/11/20 05:40 05:40 05:40 WBC 11.1 H RBC 4.65 Hgb 14.5 Hct 42.7 MCV 91.9 MCH 31.2 MCHC 34.0 RDW 13.4 Plt Count 147 L Neut % (Auto) 81.8 H Lymph % (Auto) 12.4 L [place] % (Auto) 5.0 Eos % (Auto) 0.0 L Baso % (Auto) 0.8 Neut # (Auto) 9100 H Lymph # (Auto) 1400 [place] # (Auto) 600 Eos # (Auto) 0 Baso # (Auto) 100 D-Dimer Sodium 138 Potassium 4.1 Chloride 107 Carbon Dioxide 27 BUN 24 H Creatinine 0.97 Estimated GFR > 60.0 BUN/Creatinine Ratio 24.7 H Glucose 196 H Lactate Calcium 9.5 Magnesium 2.0 Ferritin Total Bilirubin AST ALT Alkaline Phosphatase Lactate Dehydrogenase C-Reactive Protein NT-Pro-B Natriuret Pep Total Protein Albumin Globulin Albumin/Globulin Ratio Procalcitonin TSH 0.58 Urine RBC Urine WBC Urine Bacteria Ur Culture Indicated? A. baumannii (PCR) [place] albicans (PCR) C. glabrata (PCR) C. krusei (PCR) C. parapsilosis (PCR) C. tropicalis (PCR) COVID-19 PCR Enterobacteriac sp PCR E. cloacae complex PCR Enterococcus sp PCR E. coli (PCR) H. influenzae (PCR) Influenza A (RT-PCR) Influenza B (RT-PCR) Klebsiella oxytoca PCR Klebsiella pneumoniae List. monocytogenes PCR N. meningitidis (PCR) Proteus species (PCR) Serratia marcescens PCR Staphylococcus sp PCR Staph aureus (PCR) mecA-Methicil Res Gene Streptococcus sp PCR Group A Strep (PCR) Strep agalactiae (PCR) Strep pneumoniae (PCR) P. aeruginosa (PCR) Joon/B-Vanco Res Genes KPC-Carbap Res Gene PCR PFSH Medical History Hepatitis C virus infection resolved after antiviral drug therapy Surgical History History of cholecystectomy History of exploratory laparotomy History of nasal surgery Family History (Updated 09/10/20 @ 23:53 by MARION Childress) Father No significant medical problems Mother Brain tumor Son No significant medical problems Daughter No significant medical problems Social History household members: spouse Smoking Status: Former smoker alcohol intake: current Assessment & Plan Assessment & Plan narrative: Assessment: 1. Clinically improved postop day 1 status post cystoscopy and placement bilateral ureteral stents for bilateral obstructing ureteral calculi in the setting of E coli urosepsis. Plan: 1. Await final bacterial sensitivities and transition to p.o. antibiotics. Recommend a full 2 week course of appropriate culture directed antibiotic. 2. KUB today-reassess position obstructing stones on stent placement. 3. Will plan staged ureteral laser lithotripsy following appropriate courses antibiotic. Request follow-up in Urology Clinic 2-3 weeks post discharge.
--- NOTE | 2020-09-11 10:41 | PC.NURSE ---
Addendum entered by Darcie Alves R.N. 09/11/20 10:46: pt back in room at 1046. Voided in bathroom and laying in bed. Original Note: pt saline locked and SBA transfer to for transfer to imaging. Left room at approximately 1035.
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
[2020-09-11 12:00] VITALS: BP 134/77; PULSE 64; RESP 16; TEMP 36.5
[2020-09-11] MEDS: CEFTRIAXONE 2 GM/50 ML FROZ.PIGGY IV (14:28)
[2020-09-11 15:20] VITALS: BP 141/79; PULSE 70; RESP 16; TEMP 36.5
--- NOTE | 2020-09-11 15:58 | PC.NURSE ---
Addendum entered by Anitha Lebron R.N. 09/11/20 16:22: Pt left via wheelchair w/ aide at 1601 Original Note: Pt ready to be discharged at start of shift, IV abx complete and line flushed. IV d/c, tolerated well. Instructions given to patient and confirmed with Pankaj via telephone. Pt understood instructions and medications and disease process, had no questions after education, and agrees to discharge plan. Spouse present at bedside for instruction.
== END 2020-09-11 16:01 | disposition home or self-care (01) | DRG 854 ==
LOC: ED 17:00 → AC 09-11 09:07
PROVIDERS: Nurse Practitioner Adult Health; Specialist; Admitting Provider Internal Medicine; Emergency Provider Nurse Practitioner Family; Visit Provider Internal Medicine
PROC: 0T788DZ Dilation of Bilateral Ureters with Intraluminal Device, Via Natural or Artificial Opening Endoscopic (ICD-10-PCS; principal; 2020-09-10 17:30)
DX: A41.9 Sepsis, unspecified organism (principal); N13.6 Pyonephrosis; E04.9 Nontoxic goiter, unspecified; Z11.59 Encounter for screening for other viral diseases; Z87.891 Personal history of nicotine dependence
CPT/HCPCS: 36415; 51798; 52330; 52332; 71045; 71275; 74018; 74177; 76000; 80048; 80053; 81003; 81015; 82728; 83605; 83615; 83735; 83880; 84145; 84443; 85025; 85379; 86140; 87040; 87077; 87086; 87150; 87186; 87205; 87502; 87635; 93005; 94762; 96361; 96365; 96375; 99222; 99285; G0378; J0690; J0696; J1100; J1650; J1885; J2405; J2704; J3010; Q9967

== ENCOUNTER → 2020-09-14 16:07 | Outpatient (CLI) | payer OTHER, SELFPAY ==
[2020-09-10 19:54] VITALS: BMI 30.9
[2020-09-14 18:41] LABS: Appearance Urine UA CLEAR; Bilirubin Urine UA NEGATIVE (NEGATIVE); Color Urine UA YELLOW; Glucose Urine UA NEGATIVE (Negative); Ketones Urine UA NEGATIVE (NEGATIVE); Leukocyte Esterase Urine UA TRACE (NEGATIVE); Nitrite Urine UA NEGATIVE (Negative); Occult Blood Urine UA 3+ (Negative); Protein Urine UA 1+ (Negative); Specific Gravity Urine UA 1.025 (1.000-1.035); Urobilinogen Urine UA 0.2 E.U./dL (0.2)
[2020-09-14 18:45] LABS: Bacteria Urine None Seen; WBC Urine None Seen (0-5/HPF)
[2020-09-14 18:53] LABS: Culture Indicated Urine Cult Not Indicated; RBC Urine 30-100/HPF (0-5/HPF)
== END ==
PROVIDERS: Referring Provider Specialist; Visit Provider Specialist
DX: N39.0 Urinary tract infection, site not specified (principal)
CPT/HCPCS: 81003; 81015

== ENCOUNTER → 2020-10-23 10:26 | Outpatient (CLI) | payer OTHER, SELFPAY ==
[2020-09-10 19:54] VITALS: BMI 30.9
[2020-10-23 10:44] LABS: Bacteria Urine None Seen; WBC Urine None Seen (0-5/HPF)
[2020-10-23 12:21] LABS: Appearance Urine UA CLEAR; Bilirubin Urine UA NEGATIVE (NEGATIVE); Glucose Urine UA TRACE g/dL (Negative); Ketones Urine UA NEGATIVE (NEGATIVE); Leukocyte Esterase Urine UA TRACE (NEGATIVE); Nitrite Urine UA POSITIVE (Negative); Occult Blood Urine UA 3+ (Negative); Protein Urine UA NEGATIVE (Negative); Urobilinogen Urine UA 0.2 E.U./dL (0.2); pH Urine UA 6.5 (4.5-8.0)
[2020-10-23 12:27] LABS: Color Urine UA Amber
[2020-10-23 12:28] LABS: Culture Indicated Urine Cult Not Indicated; RBC Urine 5-10/HPF (0-5/HPF)
== END ==
PROVIDERS: Referring Provider Physician Assistant Surgical; Visit Provider Physician Assistant Surgical
DX: R30.0 Dysuria (principal)
CPT/HCPCS: 81001

== ENCOUNTER → 2020-10-28 13:53 | Outpatient (CLI) | payer OTHER, SELFPAY ==
[2020-09-10 19:54] VITALS: BMI 30.9
[2020-10-28 14:23] LABS: Appearance Urine UA CLOUDY; Bilirubin Urine UA 1+ (NEGATIVE); Color Urine UA BROWN; Glucose Urine UA TRACE g/dL (Negative); Ketones Urine UA TRACE (NEGATIVE); Leukocyte Esterase Urine UA TRACE (NEGATIVE); Nitrite Urine UA NEGATIVE (Negative); Occult Blood Urine UA 3+ (Negative); Protein Urine UA 3+ (Negative); Specific Gravity Urine UA 1.025 (1.000-1.035); Urobilinogen Urine UA 0.2 E.U./dL (0.2); pH Urine UA 5.5 (4.5-8.0)
[2020-10-28 14:34] LABS: Bacteria Urine Occasional (0-1); Ictotest Urine Negative (Negative); RBC Urine >100/HPF (0-5/HPF); Transitional Epi Cells Urine 0-1/HPF (0-5/HPF); WBC Urine 5-10/HPF (0-5/HPF)
== END ==
PROVIDERS: Referring Provider Physician Assistant Medical; Visit Provider Physician Assistant Medical
DX: R10.9 Unspecified abdominal pain (principal); R30.0 Dysuria
CPT/HCPCS: 36415; 81001; 87086

== ENCOUNTER → 2020-11-01 08:39 | Outpatient (CLI) | payer OTHER, SELFPAY ==
[2020-09-10 19:54] VITALS: BMI 30.9
--- NOTE | 2020-11-01 08:42 | DI.CT.S_ITS ---
PROCEDURE: CT ABDOMEN PELVIS WO CON INDICATIONS: Unspecified abdominal pain TECHNIQUE: Noncontrast 5 mm thick sections acquired from the diaphragms to the symphysis. 5 mm coronal and sagittal reformats were then performed. For radiation dose reduction, the following was used: automated exposure control, adjustment of mA and/or kV according to patient size. COMPARISON: [facility], CT, CT ABDOMEN PELVIS W CON, 09/10/2020, 15:18. FINDINGS: Image quality: Excellent. ABDOMEN: Lung bases: Lung bases are clear. Heart size is normal. Solid organs: Liver is normal in size. Gallbladder is surgically absent. Pancreas is normal in contours. Spleen is normal in size. No adrenal nodules. Kidneys are normal in size, without nephrolithiasis. Right-sided ureteral stent noted. Mild right periureteral inflammation which could be due to the presence of stent or superimposed infection. Mild right-sided hydroureteronephrosis. No left-sided hydronephrosis. Small right renal cyst is stable compared to prior exam. Peritoneum and bowel: Unenhanced bowel loops demonstrate normal wall thickness and caliber. Numerous colonic diverticuli noted without evidence of diverticulitis. No free fluid or air. Appendix is normal. Nodes and vessels: No retroperitoneal or mesenteric adenopathy by size criteria. Aorta and inferior vena cava are normal in caliber. Miscellaneous: Small fat containing umbilical hernia. PELVIS: Genitourinary: Bladder wall thickness is normal. Miscellaneous: No inguinal hernias or adenopathy. Bones: No suspicious bony lesions. No vertebral body compression fractures. IMPRESSION: 1. Right-sided ureteral stent. Mild right hydroureteronephrosis. Mild right periureteral inflammation which could be due to presence cerebral stent versus superimposed urinary tract infection. Recommend correlation with urinalysis data. 2. No free fluid or free air. 3. No dilated loops of bowel. 4. Colonic diverticulosis without evidence of diverticulitis. 5. Appendix is normal. Dictated by: Colette Abraham MD, PhD on 11/01/2020 at 10:24 Approved by: Colette Abraham MD, PhD on 11/01/2020 at 10:34
== END ==
PROVIDERS: PCP Family Medicine; Referring Provider Physician Assistant Medical; Visit Provider Physician Assistant Medical
DX: R10.9 Unspecified abdominal pain (principal); N13.30 Unspecified hydronephrosis; N28.1 Cyst of kidney, acquired; K57.90 Diverticulosis of intestine, part unspecified, without perforation or abscess without bleeding; K42.9 Umbilical hernia without obstruction or gangrene; Z96.0 Presence of urogenital implants; Z90.49 Acquired absence of other specified parts of digestive tract
CPT/HCPCS: 74176

== ENCOUNTER → 2020-11-23 11:01 | Outpatient (CLI) | payer OTHER, SELFPAY ==
[2020-09-10 19:54] VITALS: BMI 30.9
--- NOTE | 2020-11-23 11:03 | DI.US.S_ITS ---
PROCEDURE: US RENAL COMPLETE INDICATIONS: HISTORY OF KIDNEY CALCULUS TECHNIQUE: Real-time scanning was performed of the kidneys and bladder, with image documentation. COMPARISON: [facility], CT, CT ABDOMEN PELVIS WO GIOVANNI, 11/01/2020, 8:44. FINDINGS: Kidneys: Kidneys are normal in size. Right kidney measures 10.3 cm long; left kidney measures 11.3 cm long. Right renal cortical thickness is 1.5 cm; left renal cortical thickness is 1.4 cm. Renal cortical echotexture is normal. No hydronephrosis. No suspicious solid mass lesions. At the inferior pole of the left kidney, there is a 1 cm echogenic focus. However, on the recent prior CT examination, no stone can be seen at this site. Within the superior to mid right kidney, there is a 1.4 cm simple appearing cyst seen. Bladder: Pre-void bladder volume is 279 mL. Post-void residual is 6 mL. Pre-void images demonstrate no intraluminal masses or stones. On pre-void images, only the right ureteral jet can be seen with color Doppler interrogation. (Of note, ureteral jets may not be detectable in up to 25% of cases due to insufficient differences in specific gravity between ureteral and bladder urine). Miscellaneous: No free pelvic fluid. IMPRESSION: No definite stones or hydronephrosis can be seen on this study. Simple appearing 1.4 cm right renal cyst. Trace postvoid residual, 6 cc. Dictated by: Robb Banda M.D. on 11/23/2020 at 11:44 Approved by: Robb Banda M.D. on 11/23/2020 at 11:46
== END ==
PROVIDERS: Referring Provider Urology; Visit Provider Urology
DX: N28.1 Cyst of kidney, acquired (principal); Z87.442 Personal history of urinary calculi
CPT/HCPCS: 76770

== ENCOUNTER 2023-09-17 17:43 | Emergency (ER) | payer OTHER, SELFPAY ==
[2020-09-10 19:54] VITALS: BMI 30.9
[2023-09-17] VITALS (14 sets, daily range): BP systolic 94–144; BP diastolic 57–82; PULSE 71–98; RESP 17–23; TEMP 36.9–38.8; O2SAT 91–96; BMI 31.8
--- NOTE | 2023-09-17 17:57 | DI.RAD.S_ITS ---
PROCEDURE: XR CHEST 1V INDICATIONS: suspected sepsis TECHNIQUE: One view of the chest was acquired. COMPARISON: [facility], CR, XR CHEST 1V, 09/10/2020, 14:39. FINDINGS: Surgical changes and devices: None. Lungs and pleura: Mild pulmonary vascular congestion is seen. Subtle patchy airspace opacity in bilateral infrahilar region are seen. No pleural effusions or pneumothorax. Mediastinum: Mediastinal contours appear normal. Heart size is normal. Bones and chest wall: No suspicious bony lesions. Overlying soft tissues appear unremarkable. IMPRESSION: Finding is concerning for small patchy bilateral infrahilar infiltrates versus atelectasis. No pleural effusion or pneumothorax. Dictated by: Abimael Leggett M.D. on 09/17/2023 at 18:56 Approved by: Abimael Leggett M.D. on 09/17/2023 at 18:56
--- NOTE | 2023-09-17 18:16 | DI.CT.S_ITS ---
PROCEDURE: CT ABDOMEN PELVIS WO CON INDICATIONS: sepsis hydronephrosis suspected TECHNIQUE: Axial sections were acquired from the lung bases to the pubic symphysis. Coronal and sagittal reformats were performed. For radiation dose reduction, the following was used: automated exposure control, adjustment of mA and/or kV according to patient size. COMPARISON: [facility], CT, CT ABDOMEN PELVIS WO CON, 11/01/2020, 8:44. FINDINGS: Image quality: Excellent. Lung bases: Unremarkable. Heart: No significant findings. URINARY: Right Kidney: No stones or hydronephrosis. Mild right perinephric fat stranding is seen. Likely right renal cortical cyst is again seen measures 1.9 x 1.6 cm in size on the current study series 2, image 30. No perinephric fluid collection. Right Ureter: No hydroureter. Left Kidney: No obstructing stones or hydronephrosis. Left perinephric fat stranding is noted. Left Ureter: No hydroureter. Bladder: Urinary bladder is decompressed. There is no definite bladder wall mass. No calcified bladder stones. ABDOMEN: Liver: No contour-deforming solid mass. Moderate hepatic steatosis is seen. Hepatomegaly is also noted. Gallbladder: Gallbladder is surgically absent. Biliary ducts: No biliary dilation. Pancreas: No ductal dilation. Spleen: There is splenomegaly, no discrete splenic lesion. Adrenal Glands: No adrenal nodules. Stomach and Bowel: There is no bowel obstruction. No gastric or small bowel wall thickening. Appendix is visualized in right lower quadrant and is within normal limits. Sigmoid diverticulosis is seen without definite colonic wall thickening or mesenteric fat stranding. No abscess collection. Peritoneum: No abnormal intraperitoneal fluid. No free air. Ventral Wall: Small umbilical hernia is seen containing fat only. Abdominal Nodes: No enlarged retroperitoneal or mesenteric lymph nodes. Vessels: Aorta and inferior vena cava are normal in size. PELVIS: Pelvic Organs: Unremarkable. Pelvic Nodes: Unremarkable. Miscellaneous: No inguinal hernias are seen. Bones: No suspicious bony lesions. No acute vertebral body compression fracture. IMPRESSION: 1. No obstructing renal stones or hydronephrosis. No hydroureter. Bilateral mild perinephric fat stranding. No perinephric fluid collection. Low-grade pyelonephritis cannot be excluded. 2. Decompressed urinary bladder with questionable bladder wall thickening. No calcified bladder stones or definite bladder wall mass. Cystitis cannot be excluded. 3. No bowel obstruction or abnormal bowel wall thickening. No abscess collection. Normal appendix. Colonic diverticulitis without definite CT evidence of acute diverticulitis. No free fluid or free air. 4. Hepatosplenomegaly. Dictated by: Abimael Leggett M.D. on 09/17/2023 at 19:23 Approved by: Abimael Leggett M.D. on 09/17/2023 at 19:27
[2023-09-17] MEDS: SODIUM CHLORIDE 0.9% 1,000 ML 1000 ML IV (18:23)
[2023-09-17 18:40] LABS: Bacteria Urine Occasional (0-1); Culture Indicated Urine Specimen Cultured; RBC Urine None Seen (0-5/HPF); Squamous Epithelial Cell Urine None Seen (0-5/HPF); WBC Urine 5-10/HPF (0-5/HPF)
[2023-09-17 18:40] LABS: Add Manual Diff / Slide Review NO; Basophils Absolute Auto 0 /uL (0-100); Basophils Percent Auto 0.4 % (0-2); Eosinophils Absolute Auto 0 /uL (0-450); Eosinophils Percent Auto 0.1 % (2-4); Hematocrit 43.6 % (41-53); Hemoglobin 15.4 g/dL (13.5-17.5); Lymphocytes Absolute Auto 1200 /uL (1100-4500); Lymphocytes Percent Auto 9.5 % (25-40); Mean Corpuscular HGB Conc 35.3 % (30-36); Mean Corpuscular Hemoglobin 31.5 PG (26-34); Mean Corpuscular Volume 89.2 fL (80-100); Monocytes Absolute Auto 1200 /uL (0-900); Monocytes Percent Auto 9.7 % (3-14); Neutrophils Absolute Auto 10200 /uL (1500-7000); Neutrophils Percent Auto 80.3 % (50-75); Platelet Count 187 X10^3/uL (150-400); Red Blood Cell Count 4.89 X10^6/uL (4.5-5.9); Red Cell Distribution Width 13.2 % (11.6-14.8); White Blood Cell Count 12.7 X10^3/uL (4.5-11.0)
[2023-09-17 18:41] LABS: INR 1.4 (0.9-1.3); Prothrombin Time 16.4 SECONDS (9.4-12.5)
[2023-09-17 18:43] LABS: PTT Partial Thromboplastin Tim 30 SECONDS (25.1-36.5)
[2023-09-17 18:47] LABS: Lactate (Lactic Acid) 1.4 mmol/L (0.7-2.1)
[2023-09-17 18:48] LABS: Alanine Aminotransferase 54 IU/L (<50); Albumin 4.1 g/dL (3.5-5.0); Albumin Globulin Ratio 1.1 (1.0-2.8); Alkaline Phosphatase 85 U/L (38-126); Aspartate Aminotransferase 45 IU/L (17-59); BUN Creatinine Ratio 23.5 (6-22); Blood Urea Nitrogen 20 mg/dL (9-20); Calcium 9.3 mg/dL (8.4-10.2); Carbon Dioxide 21 mmol/L (22-32); Chloride 103 mmol/L (98-107); Estimated Glomerular Filt Rate > 60 mL/min (>60); Globulin 3.7 g/dL (1.7-4.1); Glucose 141 mg/dL (80-110); HEMOLYSIS < 15 (0-50); Lipase 65 U/L (23-300); Potassium 3.5 mmol/L (3.4-5.1); Sodium 134 mmol/L (137-145); Total Protein 7.8 g/dL (6.3-8.2)
[2023-09-17] MEDS: PIPERACILLIN/TAZO 4.5 GM in SODIUM CHLORIDE 0.9% 100 ML IV (18:49)
[2023-09-17 19:18] LABS: Adenovirus Not Detected (Not Detect); B. parapertussis Not Detected (Not Detecte); Bordetella pertussis Not Detected (Not Detect); Chlamydophila pneumoniae Not Detected (Not Detect); Coronavirus 229E Not Detected (Not Detect); Coronavirus HKU1 Not Detected (Not Detect); Coronavirus NL 63 Not Detected (Not Detect); Coronavirus OC43 Not Detected (Not Detect); Human Metapneumovirus Not Detected (Not Detect); Human Rhinovirus/Enterovirus Not Detected (Not Detect); Influenza A Not Detected (Not Detect); Influenza B Not Detected (Not Detect); Mycoplasma pneumoniae Not Detected (Not Detect); Parainfluenza Virus 1 Not Detected (Not Detect); Parainfluenza Virus 2 Not Detected (Not Detect); Parainfluenza Virus 3 Not Detected (Not Detect); Parainfluenza Virus 4 Not Detected (Not Detect); Respiratory Syncytial Virus Not Detected (Not Detect); SARS- CoV-2 Not Detected (Not Detecte)
--- NOTE | 2023-09-17 19:49 | ED.FEVER ---
HPI - Fever General Chief Complaint: Fever Stated Complaint: Chills, fever and repeat Time Seen by Provider: 09/17/23 18:13 Source: patient Mode of arrival: Ambulatory History of Present Illness HPI Narrative: A 63-year-old man presenting with 5 days of fever and dysuria. He is not had flank pain. He says that at the onset of his symptoms he also had some diarrhea which is now resolved. Also says that his appetite has been poor. He is had a little bit of suprapubic pain but otherwise no abdominal pain. He is not coughing and has not had nausea or vomiting. Past medical history significant for treated hepatitis C. Related Data Home Medications Medication Instructions Recorded Confirmed naproxen sodium 220 mg capsule 220 mg PO BID PRN Headache 09/10/20 09/10/20 (Aleve) Previous Rx's Medication Instructions Recorded cefdinir 300 mg capsule 300 mg PO BID #20 caps 09/17/23 Allergies Allergy/AdvReac Type Severity Reaction Status Date / Time No Known Drug Allergies Allergy Verified 09/17/23 17:57 Patient History Medical History Hepatitis C virus infection resolved after antiviral drug therapy Surgical History History of cholecystectomy History of exploratory laparotomy History of nasal surgery Family History (Updated 09/10/20 @ 23:53 by MARION Childress) Father No significant medical problems Mother Brain tumor Son No significant medical problems Daughter No significant medical problems Social History household members: spouse Smoking Status: Former smoker alcohol intake: current Smoking Status: Former smoker alcohol intake frequency: a few times a month Substance Use Type: does not use Exam Initial Vital Signs Initial Vital Signs: Vital Signs Temperature 100.7 F H 09/17/23 17:55 Pulse Rate 98 H 09/17/23 17:55 Respiratory Rate 18 09/17/23 17:55 Blood Pressure 135/65 09/17/23 17:55 Pulse Oximetry 94 09/17/23 17:55 Oxygen Delivery Method Room Air 09/17/23 17:55 Const General: No acute distress and well hydrated HENWI Head: normocephalic and atraumatic Mouth: moist mucous membranes Neck Neck: supple Resp Effort & Inspection: normal respiratory effort Auscultation: clear to auscultation bilaterally Cardio Rate: regular rate Rhythm: regular rhythm Heart Sounds: S1 normal, S2 normal and no murmurs GI Palpation: soft, No tender and other Other: No CVAT Back/Spine/Pelvis Thoracic/Lumbar Spine: thoracic and lumbar spine normal to inspection Skin General: no rashes or lesions noted Neuro General: patient alert, patient oriented x3 and moves all extremities Extrem General: full ROM Course Orders Ordered: ED Orders 09/17/23 17:57 XR chest 1V Stat EKG-12 Lead Stat RT Consult Eval and Treat NOW 09/17/23 18:05 Respiratory Panel (Film Array) Stat Urine Culture Stat Urine Microscopic Stat 09/17/23 18:16 CT abdomen pelvis wo con Stat Blood Culture Stat Complete Blood Count AUTO DIFF Stat Comprehensive Metabolic Panel Stat Lactate (Lactic Acid) Stat Lipase Stat PTT Partial Thromboplastin Pete Stat Procalcitonin Stat Prothrombin Time INR Stat Discontinued Medications Sodium Chloride (Normal Saline 0.9%) 1,000 mls @ 1,000 mls/hr IV BOLUS ONE Stop: 09/17/23 18:56 Last Infusion: 09/17/23 19:56 Dose: Infused Documented By: Admin: 09/17/23 18:23 Dose: 1,000 mls/hr Documented By: JULIANN Piperacillin Sod/Tazobactam (Sod 4.5 gm/ Sodium Chloride) 100 mls @ 200 mls/hr IV NOW ONE Stop: 09/17/23 18:17 Last Infusion: 09/17/23 19:56 Dose: Infused Documented By: Admin: 09/17/23 18:49 Dose: 200 mls/hr Documented By: BEN Acetaminophen (Ofirmev) 1,000 mg in 100 mls @ 400 mls/hr IV NOW ONE Stop: 09/17/23 19:54 Last Infusion: 09/17/23 20:36 Dose: Infused Documented By: Admin: 09/17/23 19:53 Dose: 400 mls/hr Documented By: MAX Ondansetron HCl (Ondansetron 4 Mg/2 Ml Inj) 4 mg IV NOW PRN PRN Reason: Nausea And Vomiting Ondansetron HCl (Ondansetron 4 Mg Odt) 4 mg SL NOW PRN PRN Reason: Nausea And Vomiting Vital Signs Vital signs: Vital Signs - 8 hr 09/17/23 19:00 09/17/23 19:22 09/17/23 19:22 Temperature Pulse Rate 89 82 Respiratory Rate 23 23 Blood Pressure 123/75 Pulse Oximetry 94 95 Oxygen Delivery Method 09/17/23 19:30 09/17/23 19:30 09/17/23 20:00 Temperature Pulse Rate 82 80 Respiratory Rate 21 21 Blood Pressure 129/79 Pulse Oximetry 96 94 Oxygen Delivery Method 09/17/23 20:00 09/17/23 20:26 09/17/23 20:30 Temperature 98.5 F Pulse Rate 76 76 Respiratory Rate 19 21 Blood Pressure 125/75 Pulse Oximetry 91 92 Oxygen Delivery Method Room Air 09/17/23 20:30 09/17/23 20:34 09/17/23 20:34 Temperature Pulse Rate 75 Respiratory Rate 21 Blood Pressure 94/57 L 97/58 L Pulse Oximetry 92 Oxygen Delivery Method 09/17/23 20:41 09/17/23 20:41 09/17/23 21:00 Temperature Pulse Rate 74 Respiratory Rate 21 Blood Pressure 103/64 115/64 Pulse Oximetry 93 Oxygen Delivery Method 09/17/23 21:00 Temperature Pulse Rate 71 Respiratory Rate 17 Blood Pressure Pulse Oximetry 94 Oxygen Delivery Method MDM - Fever Lab Data Lab results narrative: WBCs 12.7 CMP is unremarkable, lactic is normal urinalysis demonstrates pyuria and leukocyte esterase. Respiratory PCR is negative 09/17/23 18:16 09/17/23 18:16 Labs: Lab Results 09/17/23 09/17/23 Range/Units 18:05 18:16 WBC 12.7 H (4.5-11.0) X10^3/uL RBC 4.89 (4.5-5.9) X10^6/uL Hgb 15.4 (13.5-17.5) g/dL Hct 43.6 (41-53) % MCV 89.2 (80-100) fL MCH 31.5 (26-34) PG MCHC 35.3 (30-36) % RDW 13.2 (11.6-14.8) % Plt Count 187 (150-400) X10^3/uL Neut % (Auto) 80.3 H (50-75) % Lymph % (Auto) 9.5 L (25-40) % [place] % (Auto) 9.7 (3-14) % Eos % (Auto) 0.1 L (2-4) % Baso % (Auto) 0.4 (0-2) % Neut # (Auto) 88690 H (9403-2588) /uL Lymph # (Auto) 1200 (1100-6150) /uL [place] # (Auto) 1200 H (0-900) /uL Eos # (Auto) 0 (0-450) /uL Baso # (Auto) 0 (0-100) /uL PT 16.4 H (9.4-12.5) SECONDS INR 1.4 H (0.9-1.3) APTT 30 (25.1-36.5) SECONDS Sodium 134 L (137-145) mmol/L Potassium 3.5 (3.4-5.1) mmol/L Chloride 103 (98-107) mmol/L Carbon Dioxide 21 L (22-32) mmol/L BUN 20 (9-20) mg/dL Creatinine 0.85 (0.66-1.25) mg/dL Estimated GFR > 60 (>60) mL/min BUN/Creatinine Ratio 23.5 H (6-22) Glucose 141 H (80-110) mg/dL Lactate 1.4 (0.7-2.1) mmol/L Calcium 9.3 (8.4-10.2) mg/dL Total Bilirubin 1.0 (0.2-1.3) mg/dL AST 45 (17-59) IU/L ALT 54 H (<50) IU/L Alkaline Phosphatase 85 (38-126) U/L Total Protein 7.8 (6.3-8.2) g/dL Albumin 4.1 (3.5-5.0) g/dL Globulin 3.7 (1.7-4.1) g/dL Albumin/Globulin Ratio 1.1 (1.0-2.8) Lipase 65 (23-300) U/L Procalcitonin 0.50 (<0.5) ng/mL Urine RBC None seen (0-5/HPF) Urine WBC 5-10/hpf H (0-5/HPF) Ur Squamous Epith Cells None seen (0-5/HPF) Urine Bacteria Occasional (0-1) (None) Ur Culture Indicated? Specimen cultured Chlamy pneumoniae PCR Not detected (Not Detect) Adenovirus (PCR) Not detected (Not Detect) B.parapertussis DNA PCR Not detected (Not Detecte) Coronavirus OC43 (PCR) Not detected (Not Detect) Coronavirus HKU1 (PCR) Not detected (Not Detect) Coronavirus 229E (PCR) Not detected (Not Detect) SARS-CoV-2 (PCR) Not detected (Not Detecte) Coronavirus NL63 (PCR) Not detected (Not Detect) Human Metapneumovir PCR Not detected (Not Detect) Influenza Type A (PCR) Not detected (Not Detect) Influenza Type B (PCR) Not detected (Not Detect) M. pneumoniae (PCR) Not detected (Not Detect) Parainfluenza 1 (PCR) Not detected (Not Detect) Parainfluenza 2 (PCR) Not detected (Not Detect) Parainfluenza 3 (PCR) Not detected (Not Detect) Parainfluenza 4 (PCR) Not detected (Not Detect) RSV (PCR) Not detected (Not Detect) Entero/Rhino (PCR) Not detected (Not Detect) Urine Dip Bedside Urine Glucose Negative Bedside Urine Bilirubin - Negative Bedside Urine Ketone +/- 5 Urine Specific [place] 1.020 Bedside Urine Occult Blood +/- Bedside Urine pH 6.0 Bedside Urine Protein +/- 15 Bedside Urine Urobilinogen - Negative Bedside Urine Nitrite - Negative Bedside Urine Leukocytes ++ [address] scan - abdomen/pelvis: My Impression: Independent review of CT abdomen and pelvis, no acute findings Radiologist's Impression: IMPRESSION: 1. No obstructing renal stones or hydronephrosis. No hydroureter. Bilateral mild perinephric fat stranding. No perinephric fluid collection. Low-grade pyelonephritis cannot be excluded. 2. Decompressed urinary bladder with questionable bladder wall thickening. No calcified bladder stones or definite bladder wall mass. Cystitis cannot be excluded. 3. No bowel obstruction or abnormal bowel wall thickening. No abscess collection. Normal appendix. Colonic diverticulitis without definite CT evidence of acute diverticulitis. No free fluid or free air. 4. Hepatosplenomegaly. Chest x-ray: My Impression: Independent review of chest x-ray, no definite infiltrate appears to be in adequate inhalation Radiologist's Impression: IMPRESSION: Finding is concerning for small patchy bilateral infrahilar infiltrates versus atelectasis. No pleural effusion or pneumothorax MDM Narrative Medical decision making narrative: 63-year-old man with a febrile illness and urinary symptoms. He is nontoxic normotensive and does appear to have a urinary tract infection. There is no associated ureteral obstruction. Not having respiratory symptoms, chest x-ray findings are noted. He was given ceftriaxone in the emergency department and started on cefdinir, indications for return to the emergency department were reviewed. Discharge Plan Departure Patient Disposition: Home Clinical Impression: Urinary tract infection Qualifiers: Urinary tract infection type: site unspecified Hematuria presence: with hematuria Qualified Code(s): N39.0 - Urinary tract infection, site not specified Instructions: DI for Urinary Tract Infection (UTI) Activity Restrictions/Additional Instructions: Emergency department evaluation tonight suggest that you have a urinary tract infection. 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 Get adequate fluids. Rest for a couple of days. Return to the emergency department if you are having increasing abdominal pain flank pain fevers frequent vomiting increasing shortness of breath or other acute symptoms. Follow up soon with her primary care provider. Prescriptions: New cefdinir 300 mg capsule 300 mg PO BID Qty: 20 0RF No Action naproxen sodium [Aleve] 220 mg Capsule 220 mg PO BID PRN (Reason: Headache) Stand Alone Forms: Patient Portal/API, Work Release Note
[2023-09-17] MEDS: ACETAMINOPHEN IV 1,000 MG/100 ML VIAL 400 MG IV (19:53)
== END 2023-09-17 21:31 | disposition home or self-care (01) ==
PROVIDERS: Emergency Medicine; Emergency Provider Emergency Medicine
DX: N39.0 Urinary tract infection, site not specified (principal)
CPT/HCPCS: 36415; 71045; 74176; 80053; 81003; 81015; 83605; 83690; 84145; 85025; 85610; 85730; 87040; 87077; 87086; 87186; 87633; 96365; 96367; 99284; 99285; J0131; J2543

== ENCOUNTER → 2023-11-27 10:51 | Outpatient (CLI) | payer OTHER, SELFPAY ==
[2020-09-10 19:54] VITALS: BMI 30.9
--- NOTE | 2023-11-27 | DI.RAD.S_ITS ---
PROCEDURE: XR CHEST 2V INDICATIONS: acute cough TECHNIQUE: 2 views of the chest were acquired. COMPARISON: [facility], CR, XR CHEST 1V, 09/17/2023, 18:01. FINDINGS: Surgical changes and devices: None. Lungs and pleura: Lungs are clear. No pleural effusions or pneumothorax. Mediastinum: Mediastinal contours are normal. Heart size is normal. Bones and chest wall: No suspicious bony abnormalities. Soft tissues appear unremarkable. IMPRESSION: No acute cardiopulmonary abnormality is seen. Dictated by: David Rivera M.D. on 11/27/2023 at 11:59 Approved by: David Rivera M.D. on 11/27/2023 at 12:00
== END ==
PROVIDERS: PCP Family Medicine; Referring Provider Registered Nurse; Visit Provider Registered Nurse
DX: R05.1 Acute cough (principal)
CPT/HCPCS: 71046

== ENCOUNTER 2024-12-15 07:53 | Day surgery (SDC) | payer OTHER, SELFPAY ==
[2020-09-10 19:54] VITALS: BMI 30.9
--- NOTE | 2024-12-15 | PATH_ITS ---
[facility] Accession Number: [id number] No. of containers..01 Tissue . 01 Material submitted: . colon - SIGMOID POLYP . 01 Diagnosis: SIGMOID COLON POLYP: Colonic mucosa with focal mucosal hyperplasia, suggestive of early development of hyperplastic polyp. MRV 12/17/2024 1247 Local . 01 Electronically signed: . Mita Marie MD, Pathologist NPI- [id number] . 01 Gross description: . SIGMOID POLYP: Received in formalin is 1 fragment(s) of raymond, soft tissue measuring 0.6 x 0.4 x 0.2 cm submitted entirely in 1 cassette(s) /PRABHAKAR 12/16/20242001 Local . 01 Pathologist provided ICD-10: D12.5 . 01 CPT . 573782 Specimen Comment: A courtesy copy of this report has been sent to [facility] Performed at: [address] [address], [place], [place] [id number] MD German Chavarria MD Phone: [phone]
[2024-12-15 08:41] VITALS: BP 125/74; PULSE 67; RESP 16; TEMP 36.3; O2SAT 98
[2024-12-15] MEDS: LACTATED RINGERS 1,000 ML 42 ML IV (08:48)
--- NOTE | 2024-12-15 09:44 | P.HP_ITS ---
History of Present Illness History of Present Illness Date Patient Seen: 12/15/24 Time Patient Seen: 09:44 Date of Onset of Symptoms: 12/15/24 Chief complaint: SDC Narrative: 64-year-old white male presents for initial screening colonoscopy. [facility] Medical History (Updated 12/15/24 @ 09:45 by Etienne Palmer MD) Colon cancer screening (12/15/24) Hepatitis C virus infection resolved after antiviral drug therapy Surgical History History of exploratory laparotomy History of nasal surgery History of cholecystectomy Family History Father No significant medical problems Mother Brain tumor Son No significant medical problems Daughter No significant medical problems Social History household members: spouse Smoking Status: Former smoker alcohol intake: current Meds Home Medications and Allergies Home Medications Medication Instructions Recorded Confirmed Type naproxen sodium 220 mg capsule 220 mg PO BID PRN Headache 09/10/20 09/10/20 History (Aleve) cefdinir 300 mg capsule 300 mg PO BID #20 caps 09/17/23 Rx sodium,potassium,mag sulfates 17.5 See Rx Instructions PO .COMPLEX 11/21/24 Rx gram-3.13 gram-1.6 gram oral soln #354 mL (Suprep Bowel Prep Kit) Allergies Allergy/AdvReac Type Severity Reaction Status Date / Time No Known Drug Allergies Allergy Verified 12/15/24 08:34 Exam Vital Signs (past 8 hours): - 12/15/24 08:41 Temperature 97.3 F L Pulse Rate 67 Respiratory Rate 16 Blood Pressure 125/74 Pulse Oximetry 98 Oxygen Delivery Method Room Air Oxygen Delivery Method Room Air Assessment & Plan Assessment and plan (1) Colon cancer screening: Status: Acute Assessment & Plan narrative: Patient presents for colonoscopy Risks, benefits, alternatives to colonoscopy explained, including but not limit ed to bowel perforation or other serious complication requiring surgery at less than 1 in 5000 colonoscopies, abdominal pain, cramping or bleeding and less than 1% of colonoscopies, and the chances that we find a diagnosis that would require further intervention of about 2%. Patient agrees to proceed. Time-Based Coding :: [TOTAL MINUTES] spent with patient and on the chart (including review of chart, obtaining history, exam, reviewing outside data, placing orders, documenting exam and treatment plan, and counseling patient) on [DATE]. PROFEE Program Review Director Document charge(s): No
--- NOTE | 2024-12-15 10:05 | PM.OP.COLON ---
Operative Date/Time/Diagnoses Date of procedure: 12/15/24 Time of procedure: 10:05 Pre-op diagnosis: Colon screening Post-op diagnosis: same (Sigmoid colon polyp) Procedure & Clinicians Study performed: Colonoscopy with cold snare polypectomy Same procedure as scheduled: Yes Indications: Colon screening Surgeon: Etienne Palmer Procedure Notes SCOAP/Timeout: Performed Procedure in detail: Time-out was performed. Mac was induced. Patient was placed in left lateral decubitus position. The perineum was inspected without any gross abnormality. Lubricated pediatric colonoscope was inserted and advanced to the cecum. The terminal ileum was intubated. The colonoscope was withdrawn slowly inspecting the circumference of the colon. A subcentimeter polyp was noted in the sigmoid colon, removed completely with cold snare polypectomy and retrieved. Very small polyps may have been missed, prep quality was adequate. Retroflexed view of the rectum showed small, non prolapsed nonbleeding internal hemorrhoids. The scope was withdrawn the patient was taken to PACU in good condition. Scope withdrawal time: 8 Findings: polyp(s) Specimen(s): other (Sigmoid polyp) Complications: none Impression: Sigmoid polyp Post-procedure Recommendations: Colonoscopy in 5 years (Next colonoscopy in 7 years) Follow up: as needed Disposition: PACU
[2024-12-15 10:11] VITALS: BP 113/75; PULSE 64; RESP 16; TEMP 36; O2SAT 92
[2024-12-15 10:17] VITALS: BP 112/75; PULSE 66; RESP 13; O2SAT 92
[2024-12-15 10:24] VITALS: BP 121/85; PULSE 63; RESP 17; O2SAT 92
[2024-12-15 10:29] VITALS: BP 110/86; PULSE 63; RESP 19; TEMP 36.1; O2SAT 93
[2024-12-15 10:32] VITALS: BP 112/75; PULSE 65; RESP 13; O2SAT 96
== END 2024-12-15 11:05 | disposition home or self-care (01) ==
PROVIDERS: PCP Family Medicine; Referring Provider Surgery; Visit Provider Surgery
PROC: 0DJD8ZZ Inspection of Lower Intestinal Tract, Via Natural or Artificial Opening Endoscopic (ICD-10-PCS; CPT 45378; principal; 2024-12-15 09:15)
DX: Z12.11 Encounter for screening for malignant neoplasm of colon (principal); K64.8 Other hemorrhoids; K63.5 Polyp of colon
CPT/HCPCS: 45385; J2704

== ENCOUNTER → 2025-01-16 16:03 | Outpatient (CLI) | payer OTHER, SELFPAY ==
[2020-09-10 19:54] VITALS: BMI 30.9
--- NOTE | 2025-01-16 16:04 | DI.US.S_ITS ---
PROCEDURE: US HERNIA INDICATIONS: UMBILICAL HERNIA TECHNIQUE: Real-time focused scanning was performed of the abdomen, with image documentation. COMPARISON: None. FINDINGS: Ventral abdominal fascial defect in umbilical region measures 0.9 x 1.3 cm in with measured at sagittal and transverse plane. Herniation sac measures 3.6 x 2 x 4.2 cm in size contains fat only. The hernia is not fully reducible. IMPRESSION: Partially reducible umbilical hernia containing fat only as described above. Dictated by: Abimael Leggett M.D. on 01/16/2025 at 17:47 Approved by: Abimael Leggett M.D. on 01/16/2025 at 17:47
== END ==
PROVIDERS: PCP Family Medicine; Referring Provider Family Medicine; Visit Provider Family Medicine
DX: K42.0 Umbilical hernia with obstruction, without gangrene (principal)
CPT/HCPCS: 76705

== ENCOUNTER 2025-03-25 09:15 | Day surgery (SDC) | payer OTHER, SELFPAY ==
[2020-09-10 19:54] VITALS: BMI 30.9
[2025-03-23 09:58] VITALS: BMI 34.5
[2025-03-25] VITALS (8 sets, daily range): BP systolic 125–145; BP diastolic 79–91; PULSE 54–86; RESP 12–17; TEMP 36.1–36.3; O2SAT 92–98; BMI 33.9
[2025-03-25] MEDS: LACTATED RINGERS 1,000 ML 42 ML IV (09:46)
[2025-03-25] MEDS: ACETAMINOPHEN 325 MG TABLET 975 MG PO (09:46)
--- NOTE | 2025-03-25 10:58 | PM.PREOP ---
Pre-operative Note COVID-19 COVID-19 status: Not tested Interval Note History & Physical reviewed/Exam performed by Physician: Yes Changes to H&P: No ASA Class (for procedural sedation): II
[2025-03-25] MEDS: CEFAZOLIN 2 GM/100 ML PREMIX 100 ML IV (11:23)
--- NOTE | 2025-03-25 11:31 | SUR.OPER ---
Supine on padded OR bed, head on pillow, arms secured on padded arm boards at <90 degrees abduction, legs uncrossed, safety belt at thigh, tape over blanket over lower legs.
[2025-03-25] MEDS: BUPIVACAINE 0.5% W/ EPI (PF) 30 ML VIAL INJ (11:38)
--- NOTE | 2025-03-25 12:09 | PM.OP.1 ---
Operative Date/Time/Diagnoses Date of procedure: 03/25/25 Time of procedure: 12:09 Pre-op diagnosis: Umbilical hernia Post-op diagnosis: same Procedure & Clinicians Procedure: Open umbilical hernia repair with mesh Same procedure(s) as scheduled: Yes Surgeon: Rene Bianchi Car Lot Attendant: Yomi Elizondo Anesthesia Type: General Operative Notes Findings: Hernia Applied: none Estimated Blood Loss (mL): 5 Procedure in detail: Ancef was administered. The patient was brought to the operating room, placed on the table in the supine position and general endotracheal anesthesia was induced. The abdomen was prepped and draped in the usual fashion. A time-out was performed. A 6 cm curvilinear incision was made inferior to the umbilicus. The hernia sac was dissected free from the surrounding subcutaneous adipose tissue. The sac was dissected off the umbilical stalk using a combination of cautery, sharp and blunt dissection. The hernia sac was dissected free from the fascial ring and allowed to drop back down into the abdomen. The fascial defect was only about 1 cm across. The fascia was then closed transversely with three interrupted 0 Ethibond sutures. The subcutaneous adipose tissue was cleared off of the anterior sheath circumferentially about 2 cm in each direction. A piece of polypropylene mesh was trimmed to fit over the fascial closure and secured with Tisseel. Once the Tisseel was dried the umbilical skin was tacked down to the deep subcutaneous adipose tissue with a single 3-0 Vicryl stitch. The skin was closed with multiple interrupted 3-0 Vicryl dermal sutures followed by a running 4 Monocryl subcuticular closure. Steri-Strips were applied and an abdominal binder was applied. Yomi JUNIOR provided assistance with exposure, retraction and closure of incisions. Complications: none Post-operative Condition: stable Disposition: PACU
[2025-03-25] MEDS: OXYCODONE IR 5 MG TABLET PO (12:47)
[2025-03-25] MEDS: hydrOXYzine 50 MG/ML INJ IM (12:47)
[2025-03-25] MEDS: ONDANSETRON 4 MG/2 ML INJ IV (12:47)
== END 2025-03-25 14:34 | disposition home or self-care (01) ==
PROVIDERS: PCP Family Medicine; Referring Provider Surgery; Visit Provider Surgery
PROC: (CPT 49591; principal; 2025-03-25 11:45)
DX: K42.9 Umbilical hernia without obstruction or gangrene (principal); Z87.891 Personal history of nicotine dependence
CPT/HCPCS: 49591; C1781; C9250; J0330; J0690; J1100; J1885; J2405; J2704; J3010; J3410

== ENCOUNTER → 2025-07-15 17:16 | Outpatient (ROUT) | payer SELFPAY ==
[2020-09-10 19:54] VITALS: BMI 30.9
[2025-07-15 17:19] LABS: Urine Drug Scr, Empl Non-NIDA See Separate Report
== END ==
PROVIDERS: PCP Family Medicine
DX: Z02.1 Encounter for pre-employment examination (principal)
CPT/HCPCS: 81099